=== PATIENT | female | born 1985 | race Caucasian/White ===

== ENCOUNTER → 2018-03-02 16:23 | Outpatient (CLI) | payer OTHER, SELFPAY ==
[2018-03-02 19:31] LABS: Chlamydia Trachomatis by PCR Negative (Negative); Neisserai gonorrhoeae by PCR Negative (Negative); Probe Check PASS; Sample Adequacy Control PASS; Specimen Processing Control PASS
== END ==
PROVIDERS: Visit Provider Obstetrics & Gynecology
DX: Z11.3 Encounter for screening for infections with a predominantly sexual mode of transmission (principal)
CPT/HCPCS: 87491; 87591

== ENCOUNTER → 2018-03-23 10:33 | Outpatient (CLI) | payer OTHER, SELFPAY ==
[2018-03-23 12:35] LABS: Absolute Lymphocyte Count 1.26 X10^3/ul (0.83-4.51); Absolute Neutrophil Count 4.8 X10^3/uL (2.0-7.7); Basophil# 0.03 X10^3/uL; Basophil% 0.4 % (0-1); Eosinophil# 0.15 X10^3/uL; Eosinophils% 2.2 % (0-5); Hemoglobin 12.3 g/dl (12.0-15.0); Lymphocyte # 1.26 X10^3/ul (4.0); Lymphocyte % 18.4 % (19-41); Mean Corp Hgb Conc 34.2 g/gl (32-36); Mean Corpuscular Hgb 27.6 pg (27.0-32.0); Mean Corpuscular Volume 80.9 fL (81-99); Mean Platelet Vol. 10.3 fl (6.2-12.0); Monocyte# 0.62 X10^3/uL; Monocyte% 9.1 % (0-10); Neutrophil # 4.77 X10^3/uL (2.7-7.7); Neutrophil % 69.8 % (47-70); Platelet Count 194 K/mm3 (150-450); RBC Distribution Width CV 14.8 % (11.6-14.6); RBC Distribution Width SD 42.9 fl (35.1-43.9); Red Blood Count 4.45 M/mm3 (4.2-5.4); White Blood Count 6.8 K/mm3 (4.4-11.0)
[2018-03-23 12:36] LABS: POSITIVE COUNT NO; POSITIVE DIFFERENTIAL NO; POSITIVE MORPHOLOGY NO
[2018-03-23 12:57] LABS: Thyroid Stim Hormone (TSH) 1.13 uIU/mL (0.358-3.74)
[2018-03-23 13:37] LABS: HIV - WCH Non-Reactive (Nonreactive); Rubella IgG 149.4 IU/mL
[2018-03-23 13:43] LABS: Color, Urine Yellow (Yellow); Glucose, Dipstick Normal (Normal); Ketone-Dipstick Negative (Negative); Leukocyte Esterase-Dipstick 25 /ul (Negative); Nitrite-Dipstick Negative (Negative); Occult Blood-Urine Negative /ul (Negative); Protein-Dipstick Negative (Negative); Specific Gravity, Urine 1.015 (1.002-1.030); Urine Bilirubin Dipstick Negative (Negative); Urine Clarity Sl. Cloudy (Clear); Urine Urobilinogen Normal (Normal)
[2018-03-23 14:10] LABS: Amphetamine Urine VISTA NEGATIVE (<1000 ng/mL); Barbiturate Urine VISTA NEGATIVE (< 200 ng/mL); Benzodiazepine Urine VISTA NEGATIVE (< 200 ng/mL); Cocaine Urine VISTA NEGATIVE (< 300 ng/mL); Ecstacy Urine VISTA NEGATIVE (< 500 ng/mL); Methadone Urine VISTA NEGATIVE (< 300 ng/mL); PCP Urine VISTA NEGATIVE (< 25 ng/mL); THC Urine VISTA NEGATIVE (< 50 ng/mL); Vista UDS pH Range 6
[2018-03-24 13:24] LABS: HEPATITIS B SURFACE AG Negative (Negative); Hep C Antibodies <0.1 s/co ratio (0.0-0.9); Toxoplasma Gondii IgG < 3.0 IU/mL (0.0-7.1)
[2018-03-27 10:57] LABS: Toxoplasma Gondii IgM < 3.0 AU/mL (0.0-7.9)
[2018-03-30 01:58] LABS: Prenatal RPR NONREACTIVE (NONREACTIVE)
== END ==
PROVIDERS: Visit Provider Obstetrics & Gynecology
DX: Z34.81 Encounter for supervision of other normal pregnancy, first trimester (principal); T75.89XA Other specified effects of external causes, initial encounter; Y93.K9 Activity, other involving animal care; Y92.9 Unspecified place or not applicable; Y99.9 Unspecified external cause status
CPT/HCPCS: 36415; 80307; 81002; 84443; 85025; 86703; 86762; 86777; 86778; 86803; 87340

== ENCOUNTER → 2018-05-17 17:25 | Outpatient (CLI) | payer OTHER, SELFPAY ==
[2018-05-17 16:27] VITALS: BMI 26.5
== END ==
PROVIDERS: Referring Provider Obstetrics & Gynecology; Visit Provider Obstetrics & Gynecology
DX: Z34.90 Encounter for supervision of normal pregnancy, unspecified, unspecified trimester (principal)
CPT/HCPCS: 87086

== ENCOUNTER → 2018-07-23 16:56 | Outpatient (CLI) | payer OTHER, SELFPAY ==
[2018-07-23 16:48] VITALS: BMI 26.5
[2018-07-23 17:55] LABS: Absolute Lymphocyte Count 1.61 X10^3/ul (0.83-4.51); Absolute Neutrophil Count 5.7 X10^3/uL (2.0-7.7); Basophil# 0.02 X10^3/uL; Basophil% 0.2 % (0-1); Eosinophil# 0.24 X10^3/uL; Eosinophils% 2.8 % (0-5); Hematocrit 30.4 % (37-47); Hemoglobin 9.6 g/dl (12.0-15.0); Lymphocyte # 1.61 X10^3/ul (4.0); Lymphocyte % 18.9 % (19-41); Mean Corp Hgb Conc 31.6 g/gl (32-36); Mean Corpuscular Hgb 26.3 pg (27.0-32.0); Mean Corpuscular Volume 83.3 fL (81-99); Mean Platelet Vol. 10.4 fl (6.2-12.0); Monocyte# 0.86 X10^3/uL; Monocyte% 10.1 % (0-10); Neutrophil # 5.72 X10^3/uL (2.7-7.7); Neutrophil % 67.3 % (47-70); Platelet Count 202 K/mm3 (150-450); RBC Distribution Width CV 12.9 % (11.6-14.6); RBC Distribution Width SD 37.8 fl (35.1-43.9); Red Blood Count 3.65 M/mm3 (4.2-5.4); White Blood Count 8.5 K/mm3 (4.4-11.0)
[2018-07-23 18:02] LABS: Glucose Challenge Gest 1H 50g 106 mg/dL (70-140)
[2018-07-23 18:11] LABS: POSITIVE COUNT NO; POSITIVE DIFFERENTIAL NO; POSITIVE MORPHOLOGY NO
== END ==
PROVIDERS: Referring Provider Obstetrics & Gynecology; Visit Provider Obstetrics & Gynecology
DX: Z34.92 Encounter for supervision of normal pregnancy, unspecified, second trimester (principal)
CPT/HCPCS: 36415; 82950; 85025

== ENCOUNTER → 2018-09-19 16:53 | Outpatient (CLI) | payer OTHER, SELFPAY ==
[2018-09-19 16:16] VITALS: BMI 26.5
[2018-09-19 17:12] LABS: Absolute Neutrophil Count 6.2 X10^3/uL (2.0-7.7); Basophil# 0.02 X10^3/uL; Basophil% 0.2 % (0-1); Eosinophil# 0.18 X10^3/uL; Eosinophils% 2.1 % (0-5); Hematocrit 34.8 % (37-47); Hemoglobin 11.2 g/dl (12.0-15.0); Lymphocyte % 16.1 % (19-41); Mean Corp Hgb Conc 32.2 g/gl (32-36); Mean Corpuscular Hgb 25.4 pg (27.0-32.0); Mean Corpuscular Volume 78.9 fL (81-99); Mean Platelet Vol. 9.7 fl (6.2-12.0); Monocyte# 0.81 X10^3/uL; Monocyte% 9.3 % (0-10); Neutrophil # 6.23 X10^3/uL (2.7-7.7); Neutrophil % 71.6 % (47-70); Platelet Count 180 K/mm3 (150-450); RBC Distribution Width SD 45.9 fl (35.1-43.9); Red Blood Count 4.41 M/mm3 (4.2-5.4); White Blood Count 8.7 K/mm3 (4.4-11.0)
[2018-09-19 17:14] LABS: POSITIVE COUNT NO; POSITIVE DIFFERENTIAL NO; POSITIVE MORPHOLOGY NO
[2018-09-21 13:15] LABS: HSV 1 IgG < 0.91 index (0.00-0.90); HSV 2 IgG < 0.91 index (0.00-0.90)
== END ==
PROVIDERS: Referring Provider Obstetrics & Gynecology; Visit Provider Obstetrics & Gynecology
DX: O99.013 Anemia complicating pregnancy, third trimester (principal); N90.89 Other specified noninflammatory disorders of vulva and perineum; Z3A.00 Weeks of gestation of pregnancy not specified
CPT/HCPCS: 36415; 85025; 86695; 86696

== ENCOUNTER 2018-10-17 10:15 | Inpatient (IN) | payer OTHER, SELFPAY ==
[2018-10-15 16:13] VITALS: BMI 32.6
[2018-10-17] VITALS (17 sets, daily range): BP systolic 94–127; BP diastolic 46–84; PULSE 78–100; RESP 14–18; TEMP 36.3–37.1; O2SAT 95–99; BMI 31.2
[2018-10-17] MEDS: Lactated Ringers 1,000 ML 999 ML IV (10:30)
[2018-10-17 10:42] LABS: Absolute Lymphocyte Count 1.11 X10^3/ul (0.83-4.51); Absolute Neutrophil Count 6.6 X10^3/uL (2.0-7.7); Basophil# 0.01 X10^3/uL; Basophil% 0.1 % (0-1); Eosinophil# 0.14 X10^3/uL; Eosinophils% 1.6 % (0-5); Hematocrit 35.8 % (37-47); Hemoglobin 11.9 g/dl (12.0-15.0); Lymphocyte # 1.11 X10^3/ul (4.0); Lymphocyte % 12.8 % (19-41); Mean Corp Hgb Conc 33.2 g/gl (32-36); Mean Corpuscular Hgb 25.7 pg (27.0-32.0); Mean Corpuscular Volume 77.3 fL (81-99); Mean Platelet Vol. 10.8 fl (6.2-12.0); Monocyte% 9.2 % (0-10); Neutrophil # 6.55 X10^3/uL (2.7-7.7); Neutrophil % 75.6 % (47-70); Platelet Count 162 K/mm3 (150-450); RBC Distribution Width CV 16.5 % (11.6-14.6); RBC Distribution Width SD 45.2 fl (35.1-43.9); Red Blood Count 4.63 M/mm3 (4.2-5.4); White Blood Count 8.7 K/mm3 (4.4-11.0)
[2018-10-17 10:45] LABS: POSITIVE COUNT NO; POSITIVE DIFFERENTIAL NO; POSITIVE MORPHOLOGY NO
[2018-10-17] MEDS: Sodium Citrate/Citric Acid 30 ML UDC PO (11:50)
[2018-10-17] MEDS: Lactated Ringers 1,000 ML 150 ML IV (11:50)
[2018-10-17] MEDS: Oxytocin 30 units/NS 500 ml 30 UNITS/500 ML IV.SOLN 167 UNITS IV (12:19)
[2018-10-17] MEDS: Methylergonovine 0.2 MG/ML Ampul IM (13:45)
[2018-10-17] MEDS: Lactated Ringers 1,000 ML 100 ML IV ×2 (14:37→22:00)
[2018-10-17] MEDS: Nalbuphine 10 MG/ML Ampul 5 MG IV (14:57)
[2018-10-17] MEDS: Acetaminophen 500 MG Tablet 1000 MG PO (16:29)
[2018-10-17] MEDS: 0.9% Saline Lock 10 ML Syringe IV (17:08)
[2018-10-17] MEDS: Ondansetron 4 MG/2 ML Vial IV (17:08)
[2018-10-17] MEDS: Ketorolac 30 MG/ML Syringe IV (17:56)
[2018-10-18] VITALS (10 sets, daily range): BP systolic 107–126; BP diastolic 59–73; PULSE 78–96; RESP 16–18; TEMP 36.8–37.2; O2SAT 96–99
[2018-10-18] MEDS: 0.9% Saline Lock 10 ML Syringe IV ×5 (00:08→23:59)
[2018-10-18] MEDS: Ketorolac 30 MG/ML Syringe IV ×5 (00:08→23:58)
[2018-10-18 07:00] LABS: Hematocrit 35.2 % (37-47); Hemoglobin 11.4 g/dl (12.0-15.0); Mean Corp Hgb Conc 32.4 g/gl (32-36); Mean Corpuscular Hgb 25.6 pg (27.0-32.0); Mean Corpuscular Volume 78.9 fL (81-99); Mean Platelet Vol. 10.5 fl (6.2-12.0); Platelet Count 167 K/mm3 (150-450); RBC Distribution Width CV 16.5 % (11.6-14.6); RBC Distribution Width SD 46.5 fl (35.1-43.9); Red Blood Count 4.46 M/mm3 (4.2-5.4); White Blood Count 12.2 K/mm3 (4.4-11.0)
[2018-10-18 07:05] LABS: Scan Indicated on CBC? Y/N NO
--- NOTE | 2018-10-18 07:23 | PCM.HPOB.BLA ---
- Problem List (1) Positive GBS test Status: Acute (2) History of depression Status: Acute Comment: start celexa at 36 weeks- ordered (3) Anemia affecting Status: Acute Qualifiers: Comment: repeat CBC at 36 weeks (4) History of Status: Acute Comment: 1st Breech, low fluid. 2nd repeat. Wants TOLAC (5) Status: Acute Qualifiers: Comment: carrier, genetic, and ntd screening declined. MFM US anatomy normal. Albin breech presentation (6) Supervision of normal in second trimester Status: Acute Qualifiers: Comment: PRR JOHNATHAN 10/17/18 gender surprise PC Niurka Camacho. Spouse Christian COLLIER ([facility]) History and Physical Date of Admission: 10/17/18 Intake Vital Signs 10/15/18 Body Mass Index (BMI) 32.3 10/15/18 Height 5 ft 5 in 10/15/18 Weight: 196 lb 4 oz 10/15/18 Body Mass Index (BMI) 32.6 10/15/18 Blood Pressure 138/72 H Intake Visit Reasons: 40 week ob Insurance Claims Specialist Required: No Is patient in pain?: No Allergies No Known Allergies Allergy (Verified 10/15/18 16:14) Medications Vits [Prenatabs FA ] 1 tab PO DAILY 12/06/13 [History Confirmed 10/15/18] ranitidine 150 mg tablet 150 mg PO BID #60 tab 06/11/18 [Rx Confirmed 10/15/18] ferrous sulfate 325 mg (65 mg iron) tablet 325 mg PO DAILY tab 08/06/18 [History Confirmed 10/15/18] citalopram 20 mg tablet 20 mg PO DAILY #30 tab 09/03/18 [Rx Confirmed 10/15/18] Last Menstral Period: 01/10/18 : No PFSH PFSH Surgical History delivery delivered (Acute) Social History number of children: 2 current occupational status: employed current occupation: [employer] Smoking Status: Never smoker alcohol intake: never substance use type: does not use seatbelt use: always do you feel safe at home: Yes 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 Date Name GA/Weeks Outcome Route Bth Weight Infant Gen Labor Lgth Anesthesia Del Locatn Provider FOB 12/19/11 Doug 39 live - full term 7 lbs. 3 oz. Male spinal [facility] Brian OBGYN 12/09/13 Niurka 39 live - full term 7 lbs. 7 oz. Female spinal [facility] Anton OBGYN HPI 40 week ob: Details: SALLY CANELA is a 33 year old who presents for routine OB visit. after discussion, will plan repeat or IOL if favorable. OB Visit JOHNATHAN Calculator Estimated Delivery Date 10/17/18 Based on LMP (certain) 01/10/18 Current WG 40w 0d Number 1 Expected Delivery Route/Plan TOLAC- uptodate education given, consent signed Specific Issue/Plans flu vaccine: given tdap vaccine: given rhogam: na LARC form signed: declined labor support person: Christian pain management: epidural cut cord/dad catch: : yes PP control planned: none special requests: [] Initial Weight: 155 lb Date EGA Weight BP Urine Prot Glucose FHR FuHt Pres Mov CTX Dilation Effaced St Visit Note 04/18/18 14w 0d 159 lb 6 oz (+4 lb 6 oz) 112/76 Negative Negative 156 No VB, LOF. AMIRA from Dr. Parekh 05/17/18 18w 1d 166 lb 2 oz (+11 lb 2 oz) Negative Negative 135 no vb lof cramping co left hip pain 06/11/18 21w 5d 169 lb (+14 lb) Negative Negative 135 no vb cramping, co heartburn- put on zantac. discussed history of PPD- will plan on celexa 4 weeks at 36 weeks 07/13/18 26w 2d 179 lb 4 oz (+24 lb 4 oz) 112/68 140 no vb lof good fm n oregular ctx. 07/23/18 27w 5d 181 lb 6 oz (+26 lb 6 oz) 124/72 140 29 Breech Active no vb lof good fm no regular ctx cbc gct tdap 08/06/18 29w 5d 184 lb (+29 lb) 118/76 Negative Negative 135 30 Cephalic Active no vb lof good fm no regular ctx. 08/20/18 31w 5d 185 lb (+30 lb) 110/70 Negative Negative 140 32 Cephalic Active absent no vb lof good fm no regular ctx 09/03/18 33w 5d 189 lb (+34 lb) 108/70 Negative Negative 135 34 Cephalic Active absent no vb lof good fm no regular ctx 09/19/18 36w 0d 190 lb 4 oz (+35 lb 4 oz) 132/74 Negative Negative 125 36 Cephalic Active absent 0.5 co vulvar sore- has had in the past, no history of herpes. recommend checking titers KALEE. discussed antivirals if posititve so she could still have a vaginal delivery 09/24/18 36w 5d 194 lb 4 oz (+39 lb 4 oz) 118/68 Negative Negative 136 37 Cephalic Active absent 1.40 -4 Doing well. Vulvar sore has resolved. Titers negative. No VB, LOF 10/01/18 37w 5d 192 lb 6 oz (+37 lb 6 oz) 124/64 Negative Negative 135 37 Cephalic Active absent 1 4: 0 -2 no vb lof good fm no regular ctx 10/10/18 39w 0d 194 lb 2 oz (+39 lb 2 oz) 132/82 Negative Negative 130 39 Cephalic Active absent 1 4: 0 -2 no vb lof good fm no regular ctx 10/15/18 39w 5d 196 lb 4 oz (+41 lb 4 oz) 138/72 Negative Negative 130 39 Cephalic Active absent 1 4: 0 -2 no vb lof good fm no regular ctx Visit Notes Visit Date: 10/15/18 no vb lof good fm no regular ctx Irene Huynh MD on 10/16/18 Visit Date: 10/10/18 no vb lof good fm no regular ctx Irene Huynh MD on 10/10/18 Visit Date: 10/01/18 no vb lof good fm no regular ctx Irene Huynh MD on 10/01/18 Visit Date: 09/24/18 Doing well. Vulvar sore has resolved. Titers negative. No VB, LOF CARLYLE Kearney on 09/24/18 Visit Date: 09/19/18 co vulvar sore- has had in the past, no history of herpes. recommend checking titers KALEE. discussed antivirals if posititve so she could still have a vaginal delivery Irene Huynh MD on 09/19/18 Visit Date: 09/03/18 no vb lof good fm no regular ctx Irene Huynh MD on 09/03/18 Visit Date: 08/20/18 no vb lof good fm no regular ctx Irene Huynh MD on 08/20/18 Visit Date: 08/06/18 no vb lof good fm no regular ctx. Irene Huynh MD on 08/06/18 Visit Date: 07/23/18 no vb lof good fm no regular ctx cbc gct tdap Irene Huynh MD on 07/23/18 Visit Date: 07/13/18 no vb lof good fm n oregular ctx. Irene Hunyh MD on 07/13/18 Visit Date: 06/11/18 no vb cramping, co heartburn- put on zantac. discussed history of PPD- will plan on celexa 4 weeks at 36 weeks Irene Huynh MD on 06/11/18 Visit Date: 05/17/18 no vb lof cramping co left hip pain Irene Huynh MD on 05/17/18 Visit Date: 04/18/18 No VB, LOF. AMIRA from Dr. Iglesia Prince, [employer] on 04/18/18 ACOG First Trimester First Trimester: Desire for , Alcohol, Tobacco Cessation, Illicit/Recreational Drug/Substance Use, Intimate Partner Violence, Barriers to care, Unstable Housing, Communication Barriers, Environmental/Work Hazards, Anticipated Course of Care, Toxoplasmosis Precations, Use of Any medications, Sexual activity, Exercise, Dental Care, Sauna/Hot tub use, Seat Belt use, Childbirth classes/Hospital facilities, , Travel, Indications for US and Screening for Aneuploidy Second Trimester Second Trimester: Signs and Symptoms of Labor, Selecting a care provider, Reproductive Life Planning, Care Planning, Tobacco Cessation, Depression/Anxiety and Intimate Partner Violence Third Trimester Third Trimester: Pain Management Plans, Labor support person(s), Immediate Larc, Movement Monitoring and Feeding Yes ; discussed Trial of Labor after Counseling or discussed Circumcision preference Diagnostics Diagnostics Labs Hct 34.8 % (37-47) L 09/19/18 Hgb 11.2 g/dl (12.0-15.0) L 09/19/18 Glucose 1 Hr 50 gm 106 mg/dL (70-140) 07/23/18 Details: HIV: Urine Culture: Sequential Screen: NIPT Screen: ROS Const Reports system reviewed and no additional complaints, except as docu Card Reports system reviewed and no additional complaints, except as docu Resp Reports system reviewed and no additional complaints, except as docu GI Reports system reviewed and no additional complaints, except as docu, Reports nausea Reports system reviewed and no additional complaints, except as docu Musc Reports system reviewed and no additional complaints, except as docu Exam Const General: cooperative, healthy appearing, comfortable, anxious HENMT Head: normal to inspection Nose: external nose normal Face and sinus: normal facial exam Neck Neck: normal visual inspection, full ROM, no lymphadenopathy Thyroid: thyroid normal Chest Chest palpation & inspection: normal inspection of the chest Resp Effort & Inspection: normal respiratory effort GI Inspection: normal to inspection Palpation: soft, other (gravid uterus) Other: infant vertex and appropriate size for gestational age Other: Cervical Exam: Extrem General: pedal edema Results [id number] Office Urine Glucose Negative Last Edit by Irina Coffey on 10/15/18 16:17 Office Urine Protein Negative Last Edit by Irina Coffey on 10/15/18 16:17 Assessment & Plan Problems 1. Positive GBS test B95.1 2. History of depression Z87.59; Z86.59 start celexa at 36 weeks- ordered 3. Anemia affecting in third trimester O99.013 repeat CBC at 36 weeks 4. History of Z98.891 1st Breech, low fluid. 2nd repeat. Wants TOLAC 5. 39 weeks gestation of Z3A.39 carrier, genetic, and ntd screening declined. MFM US anatomy normal. Albin breech presentation 6. Encounter for supervision of other normal in second trimester Z34.82 PRR JOHNATHAN 10/17/18 gender surprise Niurka Vásquez. Spouse Christian AMIRA ([facility]) Plan plan RLTCS and BTL, or IOL if favorable Orders Orders: POC Urinalysis 2 Dip (Clinic) 10/15/18 Coding Level of Care Code OB Routine Diagnoses Positive GBS test B95.1 History of depression Z87.59; Z86.59 Anemia affecting in third trimester O99.013 Trimester: third trimester History of Z98.891 39 weeks gestation of Z3A.39 Weeks of gestation: 39 weeks Encounter for supervision of other normal in second trimester Z34.82 Normal : other normal UPDATE- I have seen the patient and performed any clinically relevant updates to the history and physical exam. Irene Huynh MD
--- NOTE | 2018-10-18 07:24 | PCM.OPRPT ---
Problem List (1) Positive GBS test Status: Acute (2) History of depression Status: Acute Comment: start celexa at 36 weeks- ordered (3) Anemia affecting Status: Acute Qualifiers: Comment: repeat CBC at 36 weeks (4) History of Status: Acute Comment: 1st Breech, low fluid. 2nd repeat. Wants TOLAC (5) Status: Acute Qualifiers: Comment: carrier, genetic, and ntd screening declined. MFM US anatomy normal. Albin breech presentation (6) Supervision of normal in second trimester Status: Acute Qualifiers: Comment: PRR JOHNATHAN 10/17/18 gender surprise PC Niurka Camacho. Spouse Christian AMIRA ([facility]) Delivery Classification: Scheduled Final JOHNATHAN: 10/17/18 Gestational age: 40 Weeks and 1 Days Indications for : Repeat Elective Description of Procedure: The patient is a 33-year-old G3, P2 at 40 weeks presented for repeat . Spinal anesthesia was placed without difficulty. Palma catheter was placed. The patient was placed in the dorsal supine position with leftward tilt. Patient was prepped and draped in the normal sterile fashion. Pfannenstiel skin incision was made with the scalpel and carried through to the underlying layer of fascia with the scalpel. Fascia was nicked in the midline and the incision extended laterally. The rectus bellies were dissected off superiorly and inferiorly with out complication both sharply and bluntly. The peritoneum was entered digitally. The lower uterine segment of the uterus was noted to be significantly thin and almost translucent to where vernix was seen floating underneath the thin lower uterine segment two thirds the way across the lower uterus. No uterine dehiscence was seen however the area was incredibly thin. The incision was stretched and a low transverse uterine incision was made with the scalpel. The 's head was delivered atraumatically followed by the anterior and posterior shoulders without complication the rest of the infant delivered. The cord was clamped and cut and the was handed off to awaiting nurse. The placenta was delivered spontaneously immediately following and was noted to be intact and have a three-vessel cord. The uterus was exteriorized cleared of all clots and debris, and the incision was closed in a double layer closure using #1 Monocryl. The uterus was returned to the maternal abdomen and gutters were cleared of all clots and debris. The ovaries and fallopian tubes were noted to be within normal limits. The peritoneum was closed with 3-0 Monocryl in a running fashion. Fascia was closed with 0 PDS in a running fashion. Subcutaneous tissue was copiously irrigated and the skin was closed with 3-0 Monocryl in a subcuticular fashion. Mepilex dressing were applied without complication. Patient was taken to recovery in stable condition. Amniotic Membrane Rupture Type: Artificial Amniotic Fluid Description: Clear Placenta Disposition: [facility] Cord Entanglement: Around neck x 1, loose, - - Around the body x3 Esitmated Blood Loss (ml): 700 Infant Gender: Male Pre-op Antibiotic Given: Ancef 2 grams IV x1 Complications: None - Admit VTE Documentation VTE Present on Admission: No VTE Mechan Device Prophylaxis: SCD's
--- NOTE | 2018-10-18 07:41 | PN.OBGYN_ITS ---
Subjective: doing well no complaints pain controlled. Denies SOB but has discomfort over bilateral collar bone that increased with a deep breath. No N V. ambulating well tolerating po lochia moderate, going well - Physical Exam General: Alert, Oriented x3 Lungs: Clear to auscultation, Normal air movement, No rhonchi, No wheeze, No rales Abdomen: Soft, Non-Distended, - - FF below U. Dressing intact without new drainage. Vital Signs Temp Pulse Resp BP Pulse Ox 98.5 F 88 16 108/70 97 10/18/18 06:00 10/18/18 06:00 10/18/18 06:00 10/18/18 06:00 10/18/18 06:00 Oxygen Delivery Method Room Air Weight: 188 lb Body Mass Index (BMI) 31.2 Intake and Output for Last 24 Hours 10/16/18 10/17/18 10/18/18 23:59 23:59 23:59 Intake Total 1986 / 1986 Output Total 150 / 150 1000 / 1000 Balance 1837 / 1837 1008 / 1008 Laboratory Tests Past 24 Hrs 10/17/18 10/17/18 10/18/18 10:30 10:30 06:40 WBC 8.7 12.2 H RBC 4.63 4.46 Hgb 11.9 L 11.4 L Hct 35.8 L 35.2 L MCV 77.3 L 78.9 L MCH 25.7 L 25.6 L MCHC 33.2 32.4 RDW 16.5 H 16.5 H RDW Differential 45.2 H 46.5 H Plt Count 162 167 MPV 10.8 10.5 Immature Gran % (Auto) 0.700 Neut % (Auto) 75.6 H Lymph % (Auto) 12.8 L Carson % (Auto) 9.2 Eos % (Auto) 1.6 Baso % (Auto) 0.1 Absolute Neuts (auto) 6.6 Absolute Lymphs (auto) 1.11 Total Counted Not Reportable Blood Type O POSITIVE Antibody Screen NEGATIVE Medical Necessity - Tobacco Use Smoking Status: Never smoker Assessment/Plan All Active Problems (Last Reviewed 10/15/18 @ 16:13 by Irina Coffey) Positive GBS test (Acute) History of depression (Acute) Anemia affecting (Acute) History of (Acute) (Acute) Supervision of normal in second trimester (Acute) s/p LTCS PPD # 1 1. routine post care 2. breast feeding- support given 3. rh positive 4. rubella immune
[2018-10-18] MEDS: Acetaminophen 500 MG Tablet 1000 MG PO (11:47)
[2018-10-18] MEDS: Senna/Docusate Sodium 1 Tablet PO (11:47)
--- NOTE | 2018-10-18 15:49 | NURSING ---
encouraged ambulation, ngs diet.
[2018-10-19 02:32] VITALS: BP 118/73; PULSE 84; RESP 18; TEMP 36.6
[2018-10-19] MEDS: 0.9% Saline Lock 10 ML Syringe IV ×2 (06:12→11:29)
[2018-10-19] MEDS: Ketorolac 30 MG/ML Syringe IV ×2 (06:12→11:29)
--- NOTE | 2018-10-19 08:06 | PCM.PN.OB ---
Subjective: doing well no complaints pain controlled no CP SOB N V ambulating well tolerating po lochia moderate, going well - Physical Exam General: Oriented x3 Abdomen: Soft, Non-Distended, - - FF below U. Dressing without new drainage, intact Vital Signs Temp Pulse Resp BP Pulse Ox 97.9 F 84 18 118/73 97 10/19/18 02:32 10/19/18 02:32 10/19/18 02:32 10/19/18 02:32 10/18/18 15:40 Oxygen Delivery Method Room Air Weight: 188 lb Body Mass Index (BMI) 31.2 Intake and Output for Last 24 Hours 10/17/18 10/18/18 10/19/18 23:59 23:59 23:59 Intake Total 1986 / 1986 Output Total 150 / 150 1000 / 1000 Balance 1837 / 1837 1008 / 1008 Medical Necessity - Tobacco Use Smoking Status: Never smoker Assessment/Plan All Active Problems (Last Reviewed 10/15/18 @ 16:13 by Irina Coffey) Positive GBS test (Acute) History of depression (Acute) Anemia affecting (Acute) History of (Acute) (Acute) Supervision of normal in second trimester (Acute)
--- NOTE | 2018-10-19 08:09 | DCINST_ITS ---
Additional Instructions: If you experience any of the following, contact your healthcare provider. * Bleeding that soaks a pad every hour for 2 hours * Fever 100.4 or higher * Unrelieved incision or abdominal pain * Swelling, redness, discharge or bleeding from your incision or episiotomy site * Your incision begins to separate * Problems urinating (including inability to urinate or burning while urinating). * Visual changes * Severe headache * Flu-like symptoms * Pain or redness in one of both of your breasts * Pain, warmth, tenderness or swelling in your legs, especially the calf area * Frequent nausea and vomiting * Symptoms of depression or anxiety If you experience any of the following, call 911 or go to the nearest Emergency Room. * Chest pain * Problems breathing * Seizure activity * Partial or complete paralysis of a body part, slurred speech, weakness or drooping of the face, or a sudden inability to walk or hold your balance Allergies/Adverse Reactions: Allergies No Known Allergies Allergy (Verified 10/17/18 10:40) Medications to take at Discharge Vits [Prenatabs FA ] 1 tab PO DAILY 12/06/13 ferrous sulfate 325 mg (65 mg iron) tablet 325 mg PO DAILY tab 08/06/18 Citalopram [Celexa] 20 mg PO DAILY 10/17/18 Ranitidine HCl 150 mg PO BID 10/17/18 Naproxen [Naprosyn] 250 - 500 mg PO Q8H PRN PRN #30 tablet 10/18/18 Oxycodone HCl/Acetaminophen [Percocet 5-325] 1 - 2 tablet PO Q4H PRN PRN 7 Days #28 tablet 10/18/18 Naproxen [Naprosyn] 500 mg PO BID PRN PRN #60 tablet 10/19/18 Naproxen [Naprosyn] 500 mg PO BID PRN PRN #60 tablet 10/19/18 Oxycodone HCl/Acetaminophen [Percocet 5/325] 1 - 2 tablet PO Q4H PRN PRN 7 Days #28 tablet 10/19/18 Oxycodone HCl/Acetaminophen [Percocet 5/325] 1 - 2 tablet PO Q4H PRN PRN 7 Days #28 tablet 10/19/18 The following prescriptions were given: Oxycodone HCl/Acetaminophen [Percocet 5-325] 1 - 2 tablet PO Q4H PRN PRN 7 Days #28 tablet PRN Reason: Moderate-Severe pain Oxycodone HCl/Acetaminophen [Percocet 5/325] 1 - 2 tablet PO Q4H PRN PRN 7 Days #28 tablet PRN Reason: Pain Oxycodone HCl/Acetaminophen [Percocet 5/325] 1 - 2 tablet PO Q4H PRN PRN 7 Days #28 tablet PRN Reason: Pain Naproxen [Naprosyn] 250 - 500 mg PO Q8H PRN PRN #30 tablet PRN Reason: MILD PAIN Naproxen [Naprosyn] 500 mg PO BID PRN PRN #60 tablet PRN Reason: Pain Naproxen [Naprosyn] 500 mg PO BID PRN PRN #60 tablet PRN Reason: Pain Follow-Up: Call to make an appointment with your doctor for an incision check in 1-2 weeks. You will also need a 6 week post- follow up appointment. Test results from this visit will be discussed in further detail at your follow- up appointment, if applicable. Primary Care Physician: Charlene Bailey MD [Primary Care Provider] -
[2018-10-19 09:29] VITALS: BP 120/64; PULSE 88; RESP 16; TEMP 37.6; O2SAT 96
[2018-10-19 11:35] VITALS: TEMP 37.3
--- NOTE | 2018-10-19 11:48 | CASEMGMT ---
Social Work Brief Assessment - Labor and Delivery Unit Date of Referral/Notification: 10/18/2018 Time of Referral: 1100 Referred By: verbal notification from RN Jeanette Salmeron Reason for Referral: maternal history of depression Date of Intervention: 10/19/2018 Time of Intervention: 1100 Informant: Medical record and mother of baby (MOB) Sae Escobar History: MOB is 33 year old female, to father of baby (FOB) Christian Escobar for the last 8 years. Together for a total of 15 years. MOB and FOB have 3 children together, Doug (born ), Niurka (born ), and Travis (born 10.17.2018). MOB with starting at [address] Huynh, and was a transfer of care from Dr. Parekh office. baby Travis was born weighing 7 pounds 3 ounces a . Apgars 8 and 9 a t1 and 5 minutes of life. 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 FOB works for [employer]. MOB with history of depression, with MOB reporting that symptoms were mostly related to anxiety which led to MOB feeling down and with a low mood. MOB reports that many symptoms were directly related to MOB's attempts with the other children. MOB reports has worked with Dr. Huynh during this and started a medication, Celexa, at 34 weeks to see if this will help during the period. No reports of other mental health issues. No reports or indication of any substance use or abuse issues. Assessment: Met with MOB, baby laying on back in between MOB's legs. MOB touching baby intermittently and looked at baby several times. FOB sleeping in bed but did wake up mid conversation and participated. MOB reports to be feeling good right now and feeling that breast feeding is going better this time as compared to after previous deliveries. MOB reports plan to stay on medications, as well as work more closely with in this period. MOB reports to have adequate support from MOB's family, FOB's family and FOB. FOB will have a couple of weeks off work to help with transition home. MOB reports to have needed supplies, no reported issues with housing or transportation. MOB denies need for any services such as WIC. MOB accepting of depression packet, which does include online and local resources for depression support. MOB with good eye contact, relaxed motor activity, appropriate mood and affect to content. MOB talkative and open to sharing past past experiences. Presenting as self aware and with insight into risk for mood and anxiety issues. MOB denies any additional needs fo home going. No voiced concerns by nursing staff regarding mother/child bonding or interactions. Plan: MOB and baby to home when ready. MOB has been given depression packet for home going. No further needs requested or indicated. -ANA Soto, CROWN BUFFER
--- NOTE | 2018-10-24 09:29 | NURSING ---
baby nursing well. Baby gained 2 oz back from 24 hour weight at first doctor appt. Lots of voids and stools for baby. Mother doing well. States enjoyed stay.
== END 2018-10-19 12:50 | disposition home or self-care (01) | DRG 788 ==
PROVIDERS: Admitting Provider Obstetrics & Gynecology; Family Provider Family Medicine; PCP Family Medicine; Referring Provider Obstetrics & Gynecology; Visit Provider Obstetrics & Gynecology
PROC: (CPT 59514; principal; 2018-10-17 11:45)
DX: O34.211 Maternal care for low transverse scar from previous cesarean delivery (principal); O99.824 Streptococcus B carrier state complicating childbirth; O32.1XX0 Maternal care for breech presentation, not applicable or unspecified; O69.81X0 Labor and delivery complicated by cord around neck, without compression, not applicable or unspecified; O99.02 Anemia complicating childbirth; D64.9 Anemia, unspecified; Z87.59 Personal history of other complications of pregnancy, childbirth and the puerperium; Z79.899 Other long term (current) drug therapy; Z3A.40 40 weeks gestation of pregnancy; Z37.0 Single live birth
CPT/HCPCS: 85025; 85027; 86850; 86900; 99218; J7120; A4216; G0378; J2405

== ENCOUNTER → 2019-12-24 | Outpatient (CLI) | payer OTHER, SELFPAY ==
[2019-12-24 14:29] VITALS: BMI 27.3
[2019-12-29 06:01] LABS: HSV Culture Without Typing NEGATIVE
== END | disposition home or self-care (01) ==
LOC: LABSPEC 17:13
PROVIDERS: PCP Family Medicine; Referring Provider Nurse Practitioner Women's Health; Visit Provider Nurse Practitioner Women's Health
DX: N90.89 Other specified noninflammatory disorders of vulva and perineum (principal)
CPT/HCPCS: 87255

== ENCOUNTER → 2020-01-15 | Outpatient (CLI) | payer OTHER, SELFPAY ==
[2020-01-15 15:44] VITALS: BMI 27.3
[2020-01-17 13:22] LABS: HSV 1 IgG < 0.91 index (0.00-0.90); HSV 2 IgG < 0.91 index (0.00-0.90)
[2020-01-21 10:45] LABS: HPV APTIMA, High Risk Negative (Negative)
== END | disposition home or self-care (01) ==
LOC: LABSPEC 17:18
PROVIDERS: PCP Family Medicine; Referring Provider Obstetrics & Gynecology; Visit Provider Obstetrics & Gynecology
DX: Z12.4 Encounter for screening for malignant neoplasm of cervix (principal)
CPT/HCPCS: 36415; 86695; 86696; 87624; 88175; G0145

== ENCOUNTER 2021-01-11 21:47 | Emergency (ER) | payer OTHER, SELFPAY ==
[2020-01-15 15:44] VITALS: BMI 27.3
[2021-01-11 21:49] VITALS: BP 110/76; PULSE 68; RESP 15; TEMP 36.2; O2SAT 100; BMI 26.1
[2021-01-11 22:05] VITALS: O2SAT 97
--- NOTE | 2021-01-11 22:05 | EKG12_ITS ---
Test Reason : DYSRHYTHMIA Blood Pressure : / mmHG Vent. Rate : 075 BPM Atrial Rate : 075 BPM P-R Int : 142 ms QRS Dur : 090 ms QT Int : 406 ms P-R-T Axes : 053 070 057 degrees QTc Int : 453 ms Normal sinus rhythm Normal ECG Confirmed by KRYSTA AMBROSIO, AMY ([id number]), society editor MEGHNA PERKINS ([id number]) on 01/13/2021 10:08:43 AM Referred By: KELSEA Confirmed By:AMY CHAPARRO MD
--- NOTE | 2021-01-11 22:08 | EX.ED.DYSGE1 ---
HPI History of Present Illness Chief Complaint: General Illness Narrative Narrative: 35-year-old female presenting with chief complaint of epigastric burning. She states this started this morning after having coffee, yogurt, granola. She took 2 Tums and felt as if she was improved. Throughout the day she had a little bit more coffee and had a pork, ramirez, ketchup casserole and started to have increased burning again. She states that the burning became so bad that while she was sitting on the couch she had an episode of syncope. Patient states she was out for about a minute and did not fall and hit her head. No history of syncope. Currently she says that it feels like tightness in the center of her chest when she takes a deep breath only. She expresses that she is mildly nauseous but has not vomited. Patient also states has had diarrhea for about 2 days without black or bloody stools. She has not had a fever, chills, cough, myalgias, change in taste and smell. Patient denies history of recent travel, being bedridden or immobilized, calf pain or swelling, history of cancer, history of blood clots. Patient states that she has been off of oral control for months and took her first dose today. She is not concerned for . 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 Smoking Status: Never smoker alcohol intake: never substance use type: does not use seatbelt use: always do you feel safe at home: Yes 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 [employer] 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 ED Constitutional Constitutional ED: Denies chills or fever(s) Eyes Eyes: Denies blurry vision or diplopia ENT ENT ED: Denies rhinorrhea or sore throat Cardiovascular Cardiovascular: Reports chest pain; Denies palpitations or racing heartbeat Respiratory/Chest Respiratory/Chest: Denies cough or dyspnea Gastrointestinal Gastrointestinal: Reports abdominal pain, diarrhea and nausea Genitourinary Genitourinary ED: Denies dysuria or hematuria Musculoskeletal Musculoskeletal: Denies arthralgias, back pain, myalgias or neck pain Integumentary Denies Abrasions or rash Neurologic Neurologic: Denies headache(s) or paresthesias Psychiatric Psychiatric: Denies anxiety or depression EXAM Physical Exam Const Vital Signs: 01/11/21 21:49 01/11/21 21:52 01/11/21 22:05 Temperature 97.1 F L Temperature Source Oral Pulse Rate 68 Pulse Rate [Lying] Pulse Rate [Sitting] Pulse Rate [Standing] Respiratory Rate 15 Respiratory Effort Normal Non-Labored Respiratory Pattern Normal Blood Pressure 110/76 Blood Pressure [Lying] Blood Pressure [Sitting] Blood Pressure [Standing] Blood Pressure Mean 87 Blood Pressure Mean [Lying] Blood Pressure Mean [Sitting] Blood Pressure Mean [Standing] Pulse Ox 100 97 Oxygen Delivery Method Room Air Room Air 01/11/21 23:48 01/12/21 00:05 Temperature Temperature Source Pulse Rate 82 Pulse Rate [Lying] 78 Pulse Rate [Sitting] 74 Pulse Rate [Standing] 93 Respiratory Rate 20 H Respiratory Effort Respiratory Pattern Blood Pressure 101/70 Blood Pressure [Lying] 105/72 Blood Pressure [Sitting] 111/74 Blood Pressure [Standing] 109/88 H Blood Pressure Mean 80 Blood Pressure Mean [Lying] 83 Blood Pressure Mean [Sitting] 86 Blood Pressure Mean [Standing] 95 Pulse Ox 99 Oxygen Delivery Method Room Air Positive well nourished General Appearance ED: NAD HEENT Reports moist mucous membranes Negative for trauma Eyes PERRL and EOMs intact bilaterally General Eye ED: Negative for pale conjunctiva or scleral icterus Resp normal respiratory effort and clear to auscultation bilaterally Cardio regular rate, regular rhythm and no murmurs GI normal to inspection, nondistended, normoactive bowel sounds Back/Spine no CVA tenderness Extremity normal to inspection General Extremety ED: Negative for edema or tenderness General Extremity: Negative for edema Neuro oriented x3, CN's II-XII intact bilaterally and no sensory deficits noted Sensorium / Orientation: alert Motor Exam: strength 5/5 throughout Psych mental status grossly normal Skin no rashes or lesions noted and no wounds MDM MDM MDM Narrative Medical decision making narrative: 35-year-old female presenting with chest pain and epigastric burning. Although she started her oral control today I still feel I can apply the PERC rule and currently she is PERC negative. She has no history of DVT/PE and has no other risk factors. Patient has no cardiac history. She does have an episode of syncope which occurred while she was sitting on the couch. She currently states her pain is better but she feels nauseous. Her abdomen is soft nontender nondistended with normal bowel sounds. Heart score is 0 pretesting. EKG interpreted by myself shows a normal sinus rhythm with a ventricular rate of 75 bpm. ND interval 140 ms QRS duration 90 ms QTc 453 ms. There are no ST elevations or depressions or signs of dysrhythmia. Patient is a slight leukocytosis to 14.5 with normal hemoglobin hematocrit. Platelets are normal. Renal function is normal and potassium is slightly low at 3.3. LFTs are normal. Lipase is negative. Troponin is 3.0. Chest x-ray on my interpretation shows what looks to be fluid in a pleural fissure on the right, however the radiologist does read this as a questionable mass in the right hilar region and recommended a CT scan to further evaluate. this was discussed with the patient and I will obtain a CT without contrast given that I do not have concern for PE or dissection. The CT scan of her chest shows a well-defined ovoid mass in the anterior right middle lobe measuring 3.6 x 2.2 cm concerning for AVM. Patient was treated with Zofran and a GI cocktail and she states that her epigastric pain is gone although she had some residual nausea which she thinks is due to the taste of the GI cocktail. Orthostatic blood pressures are normal. Patient does have an elevated heart rate with standing however during the orthostatic vitals I did walk into the room is unclear whether this affected her heart rate. She did not feel symptomatic or lightheaded. Patient's family member is a dispute coordinator at [facility] and was able to text Dr. Pillai who is a trauma surgeon at [facility]. He did call me in the emergency room and I spoke with him about the patient's presentation and case and he would concerned that this might need to be treated immediately as there are some risk factors to having a pulmonary AVM. He discussed this with the storage battery inspector and tester and the hospitalist at [facility] and ultimately recommended that we transfer her to inpatient to have her AVM treated. It is unclear how long this has been present because the patient has never had a chest x-ray or CAT scan of her chest before. I am unsure if the symptoms that she expressed today are directly related to this however given the risk assessed the storage battery inspector and tester and Dr. Pillai at [facility] we did ultimately decide to have her transferred. Patient was amenable to this. Her vital signs remained stable. She remained pain-free and nausea free. Patient reevaluated multiple times and on last reevaluation she is sleeping. I spoke with her family multiple times as well as her, Dr. Pillai, and Dr. Howard. Impression: 1. Chest pain noncardiac 2. Epigastric pain 3. Syncope 4. 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 Labs: Laboratory Results - last 24 hr 01/11/21 01/11/21 01/11/21 21:52 21:52 21:52 WBC 14.5 H RBC 4.35 Hgb 11.9 L Hct 36.7 L MCV 84.4 MCH 27.4 MCHC 32.4 RDW Std Deviation 42.4 RDW Coeff of Merlyn 13.7 Plt Count 261 MPV 9.7 Immature Gran % (Auto) 0.400 Neut % (Auto) 81.3 H Lymph % (Auto) 11.2 L [place] % (Auto) 5.2 Eos % (Auto) 1.6 Baso % (Auto) 0.3 Absolute Neuts (auto) 11.8 H Absolute Lymphs (auto) 1.62 Nucleated RBC % 0 Sodium 140 Potassium 3.3 L Chloride 107 Carbon Dioxide 26.0 Anion Gap 7 BUN 12 Creatinine 0.93 Estim Creat Clear Calc 75.97 Est GFR (MDRD) Af Amer 88 Est GFR (MDRD) Non-Af 73 BUN/Creatinine Ratio 12.9 Glucose 120 H Calcium 8.6 Total Bilirubin 0.40 Direct Bilirubin 0.13 AST 17 ALT 23 Alkaline Phosphatase 54 Troponin I High Sens 3.0 Total Protein 6.6 Albumin 3.6 Globulin 3.0 Lipase 78 Radiography Diagnostic Testing: Radiology Impression Chest X-Ray 01/11/21 22:12 IMPRESSION: No acute cardiopulmonary disease. Questionable mass in the right hilar region. Chest CT recommended to further evaluate Electronically Signed: Neil DO Kemi at 22:41 EDT Tel , Service support , Chest CT 01/11/21 22:49 IMPRESSION: Suggestion of a large pulmonary AVM in the right middle lobe as above. Otherwise, lungs are clear. Nonemergent consultation with program management manager is recommended. Electronically Signed: Neil DO Kemi at 23:32 EDT Tel , Service support , Discharge Plan Triage Chief Complaint: General Illness ED Provider: Justin Goel Dx/Rx/DC Orders Prescriptions: No Action citalopram 20 MG tablet 20 mg PO DAILY RF: 0 desogestrel-ethinyl estradiol [Apri] 0.15-0.03 mg tablet 1 tab PO DAILY Qty: 28 RF: 12 Primary Care Provider: Charlene Bailey Disposition Disposition: Acute Care Hospital Discharge Location: [facility] Discharge Date/Time: 01/12/21 02:04
--- NOTE | 2021-01-11 22:12 | RAD_ITS ---
STUDY: X-RAY CHEST REASON FOR EXAM: Female, 35 years old. chest pain TECHNIQUE: Single AP portable view of the chest. COMPARISON: None. FINDINGS: The lungs are clear and expanded. There is no demonstrated pleural abnormality. Normal size heart. Normal mediastinum and santos. Normal visualized pulmonary arteries. Normal visualized aortic arch and descending thoracic aorta. There is a questionable soft tissue mass in the right hilar region measuring 2.4 x 4 cm Normal visualized thoracic spine. Normal visualized ribs, clavicles, and shoulders. There is no demonstrated abnormality of the visualized soft tissue structures of the upper abdomen. RAD/Chest 1 View (Portable) IMPRESSION: No acute cardiopulmonary disease. Questionable mass in the right hilar region. Chest CT recommended to further evaluate Electronically Signed: Neil Mcmullen DO at 22:41 EDT Tel , Service support ,
[2021-01-11] MEDS: Ondansetron 4 MG/2 ML Vial IV (22:14)
[2021-01-11] MEDS: Mag Hydrox/Al Hydrox/Simeth 30 ML UDC PO (22:14)
[2021-01-11 22:15] LABS: Absolute Lymphocyte Count 1.62 X10^3/uL (0.83-4.51); Absolute Neutrophil Count 11.8 X10^3/uL (2.0-7.7); Basophil# 0.05 X10^3/uL; Basophil% 0.3 % (0-1); Eosinophil# 0.23 X10^3/uL; Eosinophils% 1.6 % (0-5); Hematocrit 36.7 % (37-47); Hemoglobin 11.9 g/dL (12.0-15.0); Lymphocyte # 1.62 X10^3/ul (0.83-4.51); Lymphocyte % 11.2 % (19-41); Mean Corp Hgb Conc 32.4 g/dL (32-36); Mean Corpuscular Hgb 27.4 pg (27.0-32.0); Mean Corpuscular Volume 84.4 fL (81-99); Mean Platelet Vol. 9.7 fl (6.2-12.0); Monocyte# 0.75 X10^3/uL; Monocyte% 5.2 % (0-10); NRBC Flagged by Analyzer 0 % (0-5); Neutrophil # 11.81 X10^3/uL (2.7-7.7); Neutrophil % 81.3 % (47-70); Platelet Count 261 K/mm3 (150-450); RBC Distribution Width CV 13.7 % (11.6-14.6); RBC Distribution Width SD 42.4 fl (35.1-43.9); Red Blood Count 4.35 M/mm3 (4.2-5.4); White Blood Count 14.5 K/mm3 (4.4-11.0)
[2021-01-11 22:29] LABS: Anion Gap 7 (5-15); BUN 12 mg/dL (7-18); BUN/Creat Ratio 12.9 RATIO (10-20); Calcium,Total 8.6 mg/dL (8.5-10.1); Chloride 107 mmol/L (98-107); Creatinine, Serum 0.93 mg/dL (0.55-1.02); EST Glomerular Filtration Rate 73 mL/min (>60); Est Glom Filt Rate - Afr Amer 88 mL/min (>60); Estimated Creatinine Clearance 75.97 ml/min; Glucose 120 mg/dL (74-106); Lipase 78 U/L (73-393); Potassium 3.3 mmol/L (3.5-5.1); Sodium Level 140 mmol/L (136-145)
[2021-01-11 22:34] LABS: AST(SGOT) 17 U/L (15-37); Alanine Aminotransfer ALT/SGPT 23 U/L (13-56); Albumin, Serum 3.6 g/dL (3.2-5.0); Alkaline Phosphatase 54 U/L (45-117); Bilirubin, Direct 0.13 mg/dL (0.00-0.30); Protein, Total 6.6 g/dL (6.4-8.2)
--- NOTE | 2021-01-11 22:49 | CT_ITS ---
STUDY: CT CHEST WITHOUT CONTRAST REASON FOR EXAM: Female, 35 years old. chest pain RADIATION DOSAGE (If Supplied By Facility): CTDIvol = ( 9.19 ) mGy, DLP = ( 362.76 ) mGycm TECHNIQUE: Transaxial imaging was performed without the administration of intravenous contrast material. Individualized dose optimization techniques were used for this CT. COMPARISON: Chest x-ray earlier FINDINGS: As seen on chest x-ray, there is a well-defined ovoid mass in the anterior right middle lobe measuring 3.6 x 2.2 cm. This has a large feeding vessel and draining vein suggesting large pulmonary AVM. Less likely neoplastic process. Otherwise, the lungs are clear. The lungs are normal. There is no demonstrated pleural abnormality. Normal heart and pericardium. Normal mediastinum. Normal hilar regions. Normal unenhanced pulmonary arteries. Normal aorta arch and descending thoracic aorta. Normal osseous structures. There is no demonstrated abnormality of the visualized upper abdomen. CT/Chest without Contrast IMPRESSION: Suggestion of a large pulmonary AVM in the right middle lobe as above. Otherwise, lungs are clear. Nonemergent consultation with plant engineer is recommended. Electronically Signed: Neil Mcmullen DO at 23:32 EDT Tel , Service support ,
[2021-01-11 23:48] VITALS: BP 101/70; PULSE 82; RESP 20; O2SAT 99
[2021-01-12 00:05] VITALS: BP 105/72; BP 109/88; BP 111/74; PULSE 74; PULSE 78; PULSE 93
--- NOTE | 2021-01-12 01:42 | ED.RN ---
Addendum entered by Dionne Walton 01/12/21 01:57: attempted to call report again, no answer. per transfer line unit is busy. Original Note: attempted to call report no answer.
== END 2021-01-12 02:04 | disposition short-term general hospital (02) ==
PROVIDERS: Emergency Provider Student in an Organized Health Care Education/Training Program; PCP Family Medicine
DX: R07.89 Other chest pain (principal); R10.13 Epigastric pain; R55 Syncope and collapse; Q25.72 Congenital pulmonary arteriovenous malformation; F32.9 Major depressive disorder, single episode, unspecified; Z79.899 Other long term (current) drug therapy
CPT/HCPCS: 71045; 71250; 80048; 80076; 83690; 84484; 85025; 87426; 93005; 96374; 99285; J2405

== ENCOUNTER → 2021-04-12 16:44 | Outpatient (CLI) | payer OTHER, SELFPAY ==
--- NOTE | 2021-04-12 17:00 | CT_ITS ---
STUDY: CT CHEST WITH CONTRAST REASON FOR EXAM: Female, 35 years old. Right lung mass. RADIATION DOSAGE (If Supplied By Facility): CTDIvol = ( 10.72 ) mGy, DLP = ( 317.87 ) mGycm TECHNIQUE: Transaxial imaging was performed following intravenous administration of IV 100mL Isovue-370. Multiplanar coronal and sagittal images were reformatted. Individualized dose optimization techniques were used for this CT. COMPARISON: Comparison is made with prior study 01/11/2021. FINDINGS: Since prior study, there has been slight decrease in size of the polypoid soft tissue mass in the anterior right upper lobe. It presently measures 3.1 cm x 1.9 cm. A prominent vascular structure is seen entering the soft tissue mass. There is no demonstrated pleural abnormality. Normal heart and pericardium. Normal mediastinum. Normal hilar regions. Normal enhanced pulmonary arteries. Normal aorta arch and descending thoracic aorta. Normal osseous structures. There is no demonstrated abnormality of the visualized upper abdomen. CT/Chest WITH Contrast IMPRESSION: Slight decrease in size of the soft tissue mass in the right upper lobe. It presently measures 3.1 cm x 1.9 cm. Electronically Signed: Chun Caban MD at 9:39 EST , Service support ,
== END ==
PROVIDERS: PCP Family Medicine; Visit Provider Family Medicine
DX: R91.8 Other nonspecific abnormal finding of lung field (principal); Q25.72 Congenital pulmonary arteriovenous malformation
CPT/HCPCS: 71260; Q9967

== ENCOUNTER 2022-03-24 16:54 | Emergency (ER) | payer OTHER, SELFPAY ==
[2022-03-24 16:55] VITALS: BP 100/65; PULSE 74; RESP 14; TEMP 36.6; O2SAT 100; BMI 25.6
--- NOTE | 2022-03-24 17:11 | EKG12_ITS ---
Test Reason : Blood Pressure : / mmHG Vent. Rate : 070 BPM Atrial Rate : 070 BPM P-R Int : 136 ms QRS Dur : 084 ms QT Int : 406 ms P-R-T Axes : 060 070 053 degrees QTc Int : 438 ms Normal sinus rhythm with sinus arrhythmia Normal ECG Confirmed by KRYSTA AMBROSIO, AMY ([id number]), metropolitan editor MEGHNA PERKINS ([id number]) on 03/25/2022 8:32:50 AM Referred By: USHA Confirmed By:AMY CHAPARRO MD
--- NOTE | 2022-03-24 17:11 | ED.VIS.CHEST ---
HPI History of Present Illness Chief Complaint: Chest Other Informant: patient and spouse/S.O. Narrative Narrative: 36-year-old female presenting to the emergency room with epigastric pain and near syncope. She states that last night her stomach seemed to get very sour she began to feel heartburn and nausea. Today she did not eat or drink anything in her pain in her epigastrium became more intense and burning and she felt weak like she may pass out. This happened about 1 year ago. She does not currently take a antacid medication but she did take an omeprazole and 4000 mg of Tums prior to arrival. No black or bloody stools. No fevers cough sore throat or rhinorrhea. No shortness of breath. [facility] Medical History Depression Home Medications citalopram 20 mg tablet 20 mg PO DAILY depression 10/17/18 [History Last Taken 10/16/18] lorazepam 0.5 mg tablet (Ativan) 0.5 mg PO DAILY PRN 02/14/22 [History Last Taken Unknown] famotidine 20 mg tablet (Pepcid) 20 mg PO BID #30 tabs 03/24/22 [Rx Last Taken Unknown] lidocaine HCl 2 % mucosal solution (Lidocaine Viscous) 10 ml mucous membrane TID PRN pain #100 mL 03/24/22 [Rx Last Taken Unknown] Allergy/AdvReac Type Severity Reaction Status Date / Time No Known Allergies Allergy Verified 03/24/22 16:55 Surgical History delivery delivered Social History number of children: 2 current occupational status: employed 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 Smoking Status: Never smoker alcohol intake: never substance use type: does not use seatbelt use: always do you feel safe at home: Yes additional social history: Seperated ROS ROS ED Constitutional Constitutional ED: Denies chills, fever(s) or weight loss Eyes Eyes: Denies change in vision or diplopia ENT ENT ED: Denies ear pain, rhinorrhea or sore throat Cardiovascular Cardiovascular: Denies chest pain, orthopnea, palpitations or racing heartbeat Respiratory/Chest Respiratory/Chest: Denies cough, dyspnea or orthopnea Gastrointestinal Gastrointestinal: Reports abdominal pain and nausea; Denies constipation, diarrhea or vomiting Genitourinary Genitourinary ED: Denies dysuria, hematuria or urinary frequency Musculoskeletal Musculoskeletal: Denies arthralgias or myalgias Integumentary Denies abscess or rash Neurologic Neurologic: Denies headache(s) or weakness Psychiatric Psychiatric: Denies anxiety, depression, suicidal ideation or suicidal thoughts Endocrine Endocrinology: Denies polydipsia, polyphagia or polyuria Allergic/Immunologic Allergic/Immunologic ED: Denies mouth swelling, tongue swelling or urticaria EXAM Physical Exam Const Vital Signs: 03/24/22 16:55 03/24/22 17:42 03/24/22 17:44 Temperature 97.8 F Temperature Source Temporal Pulse Rate 74 77 Respiratory Rate 14 16 Respiratory Effort Normal Blood Pressure 100/65 108/74 Blood Pressure Mean 76 85 Pulse Ox 100 99 Oxygen Delivery Method Room Air Room Air Positive well nourished and well developed General Appearance ED: well developed HEENT Reports normocephalic, head/scalp atraumatic and moist mucous membranes Eyes PERRL and EOMs intact bilaterally Neck no lymphadenopathy, supple and no JVD Resp normal respiratory effort and clear to auscultation bilaterally Cardio regular rate, regular rhythm and no murmurs GI normal to inspection, nondistended, normoactive bowel sounds and non-tender Palpation: soft Back/Spine no CVA tenderness and normal ROM Extremity normal to inspection General Extremety ED: Negative for edema General Extremity: Negative for edema Neuro oriented x3 and CN's II-XII intact bilaterally Sensorium / Orientation: alert Motor Exam: strength 5/5 throughout Psych mental status grossly normal Mood & Affect: Negative for depressed or tearful Skin no rashes or lesions noted and no wounds MDM MDM MDM Narrative Medical decision making narrative: Basic blood work obtained and was negative. Her EKG does not show anything ischemic in nature. Patient received a GI cocktail and had resolution of her pain. We will place her on twice daily Pepcid as well as write for some viscous lidocaine for severe pain. Patient will discuss this further with her doctor. Lab Data Attestation: I reviewed the patient's lab results. Labs: Laboratory Results - last 24 hr 03/24/22 03/24/22 03/24/22 17:20 17:20 17:20 WBC 8.4 RBC 4.84 Hgb 13.6 Hct 40.4 MCV 83.5 MCH 28.1 MCHC 33.7 RDW Std Deviation 43.1 RDW Coeff of Merlyn 14.1 Plt Count 188 MPV 9.3 Immature Gran % (Auto) 0.200 Neut % (Auto) 84.5 H Lymph % (Auto) 6.7 L [place] % (Auto) 6.0 Eos % (Auto) 2.4 Baso % (Auto) 0.2 Absolute Neuts (auto) 7.1 Absolute Lymphs (auto) 0.56 L Nucleated RBC % 0 Differential Comment SEE COMMENT Platelet Estimate ADEQUATE RBC Morphology N CHROM Anisocytosis RARE Microcytosis RARE Sodium 139 Potassium 4.1 Chloride 108 H Carbon Dioxide 26.0 Anion Gap 5 BUN 11 Creatinine 0.84 Estim Creat Clear Calc 83.31 Est GFR (MDRD) Af Amer 98 Est GFR (MDRD) Non-Af 81 BUN/Creatinine Ratio 13.1 Glucose 109 H Calcium 8.6 Total Bilirubin 0.70 Direct Bilirubin 0.17 AST 14 L ALT 19 Alkaline Phosphatase 65 Troponin I High Sens < 3 L Total Protein 6.7 Albumin 3.6 Globulin 3.1 Lipase 76 Serum , Qual NEGATIVE EKG Initial EKG: Comments: Normal sinus rhythm with a ventricular rate of 70 bpm Discharge Plan Triage Chief Complaint: Chest Other ED Provider: Ace Carpenter Dx/Rx/DC Orders Clinical Impression: Chest pain, Chest pain due to GERD, Near syncope Instructions: What Is GERD? Prescriptions: New famotidine [Pepcid] 20 mg tablet 20 mg PO BID Qty: 30 0RF lidocaine HCl [Lidocaine Viscous] 2 % solution 10 ml mucous membrane TID PRN (Reason: pain) Qty: 100 0RF No Action lorazepam [Ativan] 0.5 mg tablet 0.5 mg PO DAILY PRN citalopram 20 MG tablet 20 mg PO DAILY Primary Care Provider: Charlene Bailey Referrals: Charlene Bailey MD [Primary Care Provider] - 1-2 Weeks Disposition Disposition: Home, Self Care
[2022-03-24 17:35] LABS: Absolute Lymphocyte Count 0.56 X10^3/uL (0.83-4.51); Absolute Neutrophil Count 7.1 X10^3/uL (2.0-7.7); Basophil# 0.02 X10^3/uL; Basophil% 0.2 % (0-1); Eosinophils% 2.4 % (0-5); Hematocrit 40.4 % (37-47); Hemoglobin 13.6 g/dL (12.0-15.0); Lymphocyte # 0.56 X10^3/ul (0.83-4.51); Lymphocyte % 6.7 % (19-41); Mean Corp Hgb Conc 33.7 g/dL (32-36); Mean Corpuscular Hgb 28.1 pg (27.0-32.0); Mean Corpuscular Volume 83.5 fL (81-99); Mean Platelet Vol. 9.3 fl (6.2-12.0); NRBC Flagged by Analyzer 0 % (0-5); Neutrophil # 7.09 X10^3/uL (2.7-7.7); Neutrophil % 84.5 % (47-70); POSITIVE DIFFERENTIAL YES; Platelet Count 188 K/mm3 (150-450); RBC Distribution Width CV 14.1 % (11.6-14.6); RBC Distribution Width SD 43.1 fl (35.1-43.9); Red Blood Count 4.84 M/mm3 (4.2-5.4); White Blood Count 8.4 K/mm3 (4.4-11.0)
[2022-03-24 17:36] LABS: Differential Indicated SCAN CRITERIA MET
[2022-03-24] MEDS: 0.9% Normal Saline 1,000 ML 1000 ML IV (17:39)
[2022-03-24] MEDS: Mag Hydrox/Al Hydrox/Simeth 30 ML UDC PO (17:40)
[2022-03-24 17:44] VITALS: BP 108/74; PULSE 77; RESP 16; O2SAT 99
[2022-03-24 17:45] LABS: Internal QC Validated? YES +Cl - CLEAR BKGD; Pregnancy, Serum, hCG Quali. NEGATIVE Negative
[2022-03-24 17:53] LABS: AST(SGOT) 14 U/L (15-37); Alanine Aminotransfer ALT/SGPT 19 U/L (13-56); Albumin, Serum 3.6 g/dL (3.2-5.0); Alkaline Phosphatase 65 U/L (45-117); Anion Gap 5 (5-15); BUN 11 mg/dL (7-18); BUN/Creat Ratio 13.1 RATIO (10-20); Bilirubin, Direct 0.17 mg/dL (0.00-0.30); Calcium,Total 8.6 mg/dL (8.5-10.1); Chloride 108 mmol/L (98-107); Creatinine, Serum 0.84 mg/dL (0.55-1.02); EST Glomerular Filtration Rate 81 mL/min (>60); Est Glom Filt Rate - Afr Amer 98 mL/min (>60); Estimated Creatinine Clearance 83.31 ml/min; Globulin 3.1 g/dL (2.2-4.2); Glucose 109 mg/dL (74-106); Lipase 76 U/L (73-393); Potassium 4.1 mmol/L (3.5-5.1); Protein, Total 6.7 g/dL (6.4-8.2); Sodium Level 139 mmol/L (136-145); Troponin-I HS < 3 pg/mL (3.0-54.0)
[2022-03-24 18:04] LABS: Anisocytosis RARE; Microcytosis RARE; Platelet Estimate ADEQUATE (ADEQ); Red Cell Morphology N CHROM NORMAL (NORM C&C)
[2022-03-24 18:32] VITALS: BP 107/72; PULSE 80; RESP 16; O2SAT 100
== END 2022-03-24 18:42 | disposition home or self-care (01) ==
PROVIDERS: Emergency Provider Emergency Medicine; PCP Family Medicine; Visit Provider Emergency Medicine
DX: R07.9 Chest pain, unspecified (principal); R55 Syncope and collapse; K21.9 Gastro-esophageal reflux disease without esophagitis; R10.13 Epigastric pain; F32.A Depression, unspecified; Z79.899 Other long term (current) drug therapy
CPT/HCPCS: 80048; 80076; 83690; 84484; 84703; 85025; 93005; 96360; 99283; J7030; A4216

== ENCOUNTER → 2022-05-02 | Outpatient (CLI) | payer OTHER, SELFPAY ==
--- NOTE | 2022-05-02 15:18 | US_ITS ---
STUDY: Ultrasound pelvis non-OB with transvaginal vascular Doppler imaging This includes a transvaginal and transabdominal portions of the exam. CLINICAL: Female, 37 years old. IUD check TECHNIQUE: Transabdominal and Transvaginal with Doppler COMPARISON: None. FINDINGS: Normal uterine size measuring 9.0 x 5.0 x 4.4 cm in maximal craniocaudal dimension. Within the superior side of the uterus on image #3 there is a suggestion that there may be a fibroid versus artifact that measures 1.6 x 1.8 cm. Normal endometrial thickness measuring 6 mm. There are no endometrial masses, and there is no fluid in the endometrial cavity. There is a visualize IUD positioned within the fundal portion of the endometrium in the expected location. Normal uterine cervix. Normal right ovary, measuring 2.4 x 2.1 x 1.4 cm. There are multiple follicles without a dominant cyst. No torsion Normal left ovary, measuring 3.9 x 2.6 x 2.2 cm. There are multiple follicles without a dominant cyst. No torsion There is no free fluid in the pelvis. 60 mL volume was demonstrated within the transabdominal bladder. There is no visualized wall thickening. Polycystic ovary disease: No. US/Transvaginal Non- IMPRESSION: The IUD appears to be in satisfactory position. Findings suggest possible superiorly located fibroid measuring 1.6 x 1.8 cm. No visualized torsion. Electronically Signed: Mansi Butler MD at 18:59 EST ,
--- NOTE | 2022-05-02 15:18 | US_ITS ---
STUDY: Ultrasound pelvis non-OB with transvaginal vascular Doppler imaging This includes a transvaginal and transabdominal portions of the exam. CLINICAL: Female, 37 years old. IUD check TECHNIQUE: Transabdominal and Transvaginal with Doppler COMPARISON: None. FINDINGS: Normal uterine size measuring 9.0 x 5.0 x 4.4 cm in maximal craniocaudal dimension. Within the superior side of the uterus on image #3 there is a suggestion that there may be a fibroid versus artifact that measures 1.6 x 1.8 cm. Normal endometrial thickness measuring 6 mm. There are no endometrial masses, and there is no fluid in the endometrial cavity. There is a visualize IUD positioned within the fundal portion of the endometrium in the expected location. Normal uterine cervix. Normal right ovary, measuring 2.4 x 2.1 x 1.4 cm. There are multiple follicles without a dominant cyst. No torsion Normal left ovary, measuring 3.9 x 2.6 x 2.2 cm. There are multiple follicles without a dominant cyst. No torsion There is no free fluid in the pelvis. 60 mL volume was demonstrated within the transabdominal bladder. There is no visualized wall thickening. Polycystic ovary disease: No. US/Pelvic (Non ) IMPRESSION: The IUD appears to be in satisfactory position. Findings suggest possible superiorly located fibroid measuring 1.6 x 1.8 cm. No visualized torsion. Electronically Signed: Mansi Butler MD at 18:59 EST ,
== END | disposition home or self-care (01) ==
LOC: US 15:18
PROVIDERS: PCP Family Medicine; Referring Provider Nurse Practitioner Women's Health; Visit Provider Nurse Practitioner Women's Health
DX: Z30.431 Encounter for routine checking of intrauterine contraceptive device (principal)
CPT/HCPCS: 76830; 76856

== ENCOUNTER → 2022-08-19 | Outpatient (CLI) | payer OTHER, SELFPAY ==
--- NOTE | 2022-08-19 14:26 | BI_ITS ---
MAMMOGRAPHY - BILATERAL DIAGNOSTIC REASON FOR EXAM: Female, 37 years old. Palpable lump in the upper-outer quadrant of the left breast. PERTINENT HISTORY: TECHNIQUE: Digital bilateral breast aide (3D mammographic acquisition) in the CC and MLO projections. 2-D mediolateral oblique (MLO) and craniocaudad (CC) views of both breasts were obtained. CAD: Full Field Digital Mammography with Computer Added Detection was performed. COMPARISON: None. Baseline examination. FINDINGS: Breast Composition: The breasts are heterogeneously dense, which may obscure small masses. There are no dominant masses or suspicious calcifications. No other significant abnormalities are identified. BI/DIAG MAMM W/CAD, BILAT IMPRESSION: Negative diagnostic mammogram. With the patient''s history of a palpable lump in the upper outer quadrant of the left breast, correlation with ultrasound is recommended. ASSESSMENT CATEGORY: BIRADS Category 0: Incomplete. Need additional imaging evaluation. A letter regarding these results will be sent to the patient by the facility within 30 days. Approximately 10% of breast cancers are not detected by mammography. A normal mammogram should not delay biopsy of a clinically suspicious abnormality. Electronically Signed: Chun Caban MD at 15:23 EDT ,
--- NOTE | 2022-08-19 15:06 | US_ITS ---
STUDY: ULTRASOUND BREAST - LEFT REASON FOR EXAM: Female, 37 years old. Pain in the left breast. TECHNIQUE: Axial and longitudinal images of the LEFT breast were performed with a high resolution ultrasound transducer. # OF IMAGES: 26 COMPARISON: Comparison is made with prior mammogram done earlier in the day. FINDINGS: LEFT Breast: The upper outer quadrant of the left breast was examined with ultrasound. There is heterogeneously dense fibroglandular tissue. No sonographic abnormality is seen. US/Breast Limited Unilateral IMPRESSION: No sonographic abnormality is seen. ASSESSMENT CATEGORY: BIRADS Category 1: Negative. A letter regarding these results will be sent to the patient by the facility within 30 days. Electronically Signed: Chun Caban MD at 16:23 EDT ,
== END | disposition home or self-care (01) ==
PROVIDERS: PCP Family Medicine; Referring Provider Family Medicine; Visit Provider Family Medicine
DX: N63.21 Unspecified lump in the left breast, upper outer quadrant (principal)
CPT/HCPCS: 76642; 77062; 77066; G0279

== ENCOUNTER → 2023-03-06 | Outpatient (CLI) | payer OTHER, SELFPAY ==
[2023-03-08 22:06] LABS: Chlamydia By Nucleic Acid AMP Negative (Negative); Gonococcus By Nucleic Acid AMP Negative (Negative)
== END | disposition home or self-care (01) ==
LOC: LABSPEC 14:13
PROVIDERS: PCP Family Medicine; Referring Provider Nurse Practitioner Women's Health; Visit Provider Nurse Practitioner Women's Health
DX: Z11.3 Encounter for screening for infections with a predominantly sexual mode of transmission (principal)
CPT/HCPCS: 87491; 87591

== ENCOUNTER → 2023-04-18 | Outpatient (CLI) | payer OTHER, SELFPAY ==
[2023-04-18 09:23] LABS: Hematocrit 45.4 % (37-47); Hemoglobin 14.7 g/dL (12.0-15.0); Mean Corp Hgb Conc 32.4 g/dL (32-36); Mean Corpuscular Hgb 28.6 pg (27.0-32.0); Mean Corpuscular Volume 88.3 fL (81-99); Mean Platelet Vol. 9.6 fl (6.2-12.0); Platelet Count 198 K/mm3 (150-450); RBC Distribution Width CV 13.1 % (11.6-14.6); RBC Distribution Width SD 42.3 fl (35.1-43.9); Red Blood Count 5.14 M/mm3 (4.2-5.4)
[2023-04-18 09:31] LABS: Internal QC Validated? YES +Cl - CLEAR BKGD; Pregnancy, Serum, hCG Quali. NEGATIVE Negative
[2023-04-18 09:41] LABS: Cholesterol 169 mg/dL (200); High Density Lipoprotein 65 mg/dL; Triglycerides 86 mg/dL; Very Low Density Lipoprotein 17 mg/dL (5-40)
--- NOTE | 2023-04-18 17:55 | PCM.TILTTABL ---
Staff Staff: Anuradha Astorga and Fiona Bowen Summary Pre Test Resting HR: 72 Pre Test Resting BP: 113/85 Minimum Test HR: 69 Maximum Test HR: 127 Minimum Test BP: 0/0 Maximum Test BP: 118/76 Reason for Test Termination: Syncope Physician Tilt Table Report Patient's Physicians Primary Care Physician: Charlene Bailey Indications/Diagnosis: Syncope Procedure Comments: The patient was brought to the noninvasive lab in the postabsorptive nonsedated state. Informed consent was obtained. Initial EKG was obtained demonstrating sinus rhythm at 72 bpm and a blood pressure 119/86 mmHg. The patient was then put in the 70 degree upright tilt position with continuous EKG monitoring as well as heart rate and blood pressure. Patient maintained normal blood pressures and heart rate and remained asymptomatic. After 20 minutes the patient was then put back in the recumbent position and administered 0.4 mg of sublingual nitroglycerin. Initial heart rate was 90 bpm with a blood pressure of 116/90 mmHg. The patient's heart rate after 2 minutes went up to 127 bpm and blood pressure declined to 90/72 mmHg. Patient started complaining of a tingling feeling like she was going to pass out. The heart rate then began to dip to 83 and then a uday of 69 and blood pressures which were not palpable. The patient was noted to be pale. She apparently passed out and then the tilt table was put back in the recumbent position with improvement in the blood pressure and heart rate. Summary: Positive tilt table test suggestive of vasodepressor or vasovagal syncope.
[2023-04-18 18:01] VITALS: BP 0/0; BP 113/85; BP 118/76
== END | disposition home or self-care (01) ==
LOC: CVS 09:08
PROVIDERS: PCP Family Medicine; Referring Provider Internal Medicine Cardiovascular Disease; Visit Provider Internal Medicine Cardiovascular Disease
DX: Z01.812 Encounter for preprocedural laboratory examination (principal); R55 Syncope and collapse
CPT/HCPCS: 36415; 80061; 84703; 85027; 93660

== ENCOUNTER → 2023-04-19 | Outpatient (CLI) | payer OTHER, SELFPAY ==
--- NOTE | 2023-04-19 09:04 | ECHOD_ITS ---
Reason For Study: SYNCOPE AND COLLAPSE Procedure This was a 2D Doppler, Color Flow transthoracic echocardiogram. Exam performed in department. Left Ventricle Normal LV size. Left ventricular systolic function is normal. The estimated ejection fraction is 55 %. No evidence for diastolic dysfunction. No regional wall motion abnormalities noted. Right Ventricle Normal RV size. Normal systolic function. Atria The left and right atria are normal. Mitral Valve The mitral valve is structurally normal. No prolapse or stenosis seen. Trivial mitral valve insufficiency. Tricuspid Valve Normal tricuspid valve. Trivial tricuspid valve insufficiency. Right ventricular systolic pressure estimated to be 20 mmHg. Aortic Valve Trisinus/trileaflet aortic valve. Trivial aortic valve insufficiency. Pulmonic Valve Normal pulmonic valve. Trivial pulmonic valve insufficiency. Great Vessels Normal aortic root. Pericardium/Pleural No pericardial effusion. MMode/2D Measurements & Calculations LVIDd: 4.8 cm IVSd: 0.66 cm Ao root diam: 2.9 cm LVIDs: 3.7 cm LVPWd: 0.92 cm RVDd: 3.0 cm FS: 22.9 % LAV(MOD-bp): 32.8 ml LVAd ap4: 26.1 cm2 LVAd ap2: 31.9 cm2 LAV(MOD-bp) Indexed: 19.2 ml/m2 LVLd ap4: 7.3 cm LVLd ap2: 8.5 cm LAV(MOD-sp2): 42.1 ml EDV(MOD-sp4): 78.2 ml EDV(MOD-sp2): 102.2 ml LAV(MOD-sp4): 21.9 ml EDV(sp4-el): 79.3 ml EDV(sp2-el): 101.8 ml LVAs ap4: 16.8 cm2 LVAs ap2: 19.7 cm2 LVLs ap4: 6.5 cm LVLs ap2: 6.9 cm ESV(MOD-sp4): 37.4 ml ESV(MOD-sp2): 48.6 ml ESV(sp4-el): 36.7 ml ESV(sp2-el): 48.2 ml EF(MOD-sp4): 52.1 % EF(MOD-sp2): 52.4 % EF(sp4-el): 53.7 % SV(MOD-sp4): 40.8 ml SV(MOD-sp2): 53.6 ml SV(sp4-el): 42.6 ml LA dimension(2D): 2.7 cm LA A4 area: 10.8 cm2 RA A4 area: 12.0 cm2 TAPSE: 2.0 cm Time Measurements MV dec time: 0.16 sec Doppler Measurements & Calculations MV E max jesu: 71.0 cm/sec Lat Peak E' Jesu: 10.2 cm/sec Med Peak E' Jesu: 10.1 cm/sec MV A max jesu: 56.5 cm/sec E/E' lat: 6.9 E/E' med: 7.0 MV E/A: 1.3 MV V2 max: 86.4 cm/sec MV dec slope: 446.2 cm/sec2 Ao V2 max: 112.2 cm/sec MV max P.0 mmHg Ao max P.0 mmHg MV V2 mean: 55.9 cm/sec Ao V2 mean: 77.3 cm/sec MV mean P.4 mmHg Ao mean P.7 mmHg MV V2 VTI: 22.8 cm Ao V2 VTI: 23.3 cm AV (velocity ratio): 0.75 LV V1 max: 93.8 cm/sec PA V2 max: 84.0 cm/sec TR max jesu: 204.9 cm/sec LV V1 max P.5 mmHg PA V2 mean: 64.8 cm/sec TR max P.8 mmHg LV V1 mean P.8 mmHg LV V1 mean: 61.9 cm/sec LV V1 VTI: 17.5 cm ECHO/Echo Complete Interpretation Summary No evidence for diastolic dysfunction. The estimated ejection fraction is 55 %. Ordering Physician: Zacarias Mcclendon Referring Physician: Zacarias Mcclendon Performed By: Niurka Delaney RCS
== END | disposition home or self-care (01) ==
LOC: CVS 09:02
PROVIDERS: PCP Family Medicine; Referring Provider Internal Medicine Cardiovascular Disease; Visit Provider Internal Medicine Cardiovascular Disease
DX: R55 Syncope and collapse (principal)
CPT/HCPCS: 93306; J7040; A4216

== ENCOUNTER → 2023-04-21 | Outpatient (CLI) | payer OTHER, SELFPAY ==
--- NOTE | 2023-04-21 09:53 | STE_ITS ---
Reason For Study: Syncope and Collapse Stress Results Protocol: Stress Echocardiogram-Jose Protocol Maximum Predicted HR: 182 bpm Target HR: 155 bpm % Maximum Predicted HR: 94 % DurationHeart Rate Stage (mm:ss) (bpm) BP Comment Baseline 73 116/78Patient denies chest pain Stage 1 3:00 93 110/74Patient denies chest pain Stage 2 3:00 110 128/70Patient denies chest pain Stage 3 3:00 125 144/76Patient denies chest pain Stage 4 3:00 171 148/76Shortness of breath. Patient denies chest pain. Recovery 97 112/80Patient denies chest pain or shortness of breath Stress Duration: 12:00 mm:ss Maximum Stress HR: 171 bpm Baseline Echocardiogram Findings Stress Echo Wall motion Data Resting WM Intermediate WM Stress WM Resting Wall Motion Wall Motion Stress No regional wall motion All segments Hyperkinetic. abnormalities noted. EKG Data The baseline ECG displays normal sinus rhythm. The stress ECG displays normal ST segments. ECHO/Stress Test Echo w/o Contrast Interpretation Summary Negative exercise stress echo. Patient exercised on the treadmill according to the Jose protocol for total of 12 minutes. 93% of maximal predicted heart rate achieved. Workload 13.40 METS. Normal blood pressure response to exercise. No chest pain reported during exercise or in recovery. No ECG evidence of ischemia with exercise or in recovery. Normal augmentation of all echo segments with exercise. Ordering Physician: Zacarias Mcclendon Referring Physician: Zacarias Mcclendon Performed By:
== END | disposition home or self-care (01) ==
LOC: CVS 09:51
PROVIDERS: PCP Family Medicine; Referring Provider Internal Medicine Cardiovascular Disease; Visit Provider Internal Medicine Cardiovascular Disease
DX: R55 Syncope and collapse (principal)
CPT/HCPCS: 93017; 93350

== ENCOUNTER → 2023-05-16 | Outpatient (CLI) | payer OTHER, SELFPAY ==
[2023-05-16 10:20] LABS: Erythrocyte Sedimentation Rate < 1 mm/hr (0-30)
[2023-05-16 10:38] LABS: Cholesterol 164 mg/dL (200); Glucose 72 mg/dL (74-106); High Density Lipoprotein 66 mg/dL; Triglycerides 61 mg/dL; Very Low Density Lipoprotein 12 mg/dL (5-40)
[2023-05-16 10:39] LABS: Vitamin D,25 Hydroxy 29.5 ng/mL
[2023-05-16 10:49] LABS: Amylase 54 U/L (25-115); CRP < 2.90 mg/L (0.0-3.0); Lipase 32 U/L (13-75)
[2023-05-17 11:09] LABS: Anti-Centromere B Ab <0.2 AI (0.0-0.9); Anti-Chromatin <0.2 AI (0.0-0.9); Anti-Jo <0.2 AI (0.0-0.9); Anti-Scleroderma-70 AB <0.2 AI (0.0-0.9); Anti-dsDNA Ab 3 IU/mL (0-9); RNP Ab <0.2 AI (0.0-0.9); SJOGREN'S Anti-SS-A test < 0.2 AI (0.0-0.9); SJOGREN'S Anti-SS-B test < 0.2 AI (0.0-0.9); Smith Ab <0.2 AI (0.0-0.9)
[2023-05-18 17:07] LABS: Cytoplasmic Ab (C-ANCA) <1:20 titer (Neg:<1:20); Deamidated Gliadin IgA 12 units (0-19); Deamidated Gliadin IgG 4 units (0-19); Endomysial Antibody IgA Negative (Negative); Gastrin, Serum 80 pg/mL (0-115); Immunoglobulin A 261 mg/dL (87-352); Perinuclear Ab (P-ANCA) <1:20 titer (Neg:<1:20); t-Transglutaminase IgA <2 U/mL (0-3)
== END | disposition home or self-care (01) ==
PROVIDERS: Nurse Practitioner Women's Health; PCP Family Medicine; Referring Provider Internal Medicine Gastroenterology; Visit Provider Internal Medicine Gastroenterology
DX: Z13.21 Encounter for screening for nutritional disorder (principal); R55 Syncope and collapse; R10.13 Epigastric pain; Z13.1 Encounter for screening for diabetes mellitus; Z13.220 Encounter for screening for lipoid disorders
CPT/HCPCS: 36415; 80061; 82150; 82306; 82784; 82941; 82947; 83516; 83690; 84443; 85652; 86140; 86225; 86235; 86255; 86256

== ENCOUNTER → 2023-05-17 | Outpatient (CLI) | payer OTHER, SELFPAY ==
[2023-05-25 18:07] LABS: 5-HIAA, 24UR 4.3 mg/24 hr (0.0-14.9); 5-HIAA, UR 1.5 mg/L (Undefined)
== END | disposition home or self-care (01) ==
LOC: LABSPEC 09:02
PROVIDERS: PCP Family Medicine; Referring Provider Internal Medicine Gastroenterology; Visit Provider Internal Medicine Gastroenterology
DX: R10.13 Epigastric pain (principal); R55 Syncope and collapse
CPT/HCPCS: 81050; 83497

== ENCOUNTER → 2023-05-18 | Outpatient (CLI) | payer OTHER, SELFPAY ==
[2023-05-18 10:47] LABS: D-Dimer Quantitative (DVT/PE) < 0.27 FEU/ug/m (0.27-0.49)
[2023-05-25 16:08] LABS: Adrenocorticotropic Hormone 20.9 pg/mL (7.2-63.3); Albumin 4.2 g/dL (2.9-4.4); Aldosterone, Serum 24.2 ng/dL (0.0-30.0); Alpha-1-Globulins 0.1 g/dL (0.0-0.4); Alpha-2-Globulins 0.4 g/dL (0.4-1.0); Chromogranin A 43.3 ng/mL (0.0-101.8); Gamma Globulin 0.7 g/dL (0.4-1.8); Immunoglobulin A 232 mg/dL (87-352); Immunoglobulin G 744 mg/dL (586-1602); Immunoglobulin M 126 mg/dL (26-217); PROEL- TOTAL PROTEIN 6.4 g/dL (6.0-8.5); Serotonin, Serum 12 ng/mL (31-207)
[2023-05-25 17:07] LABS: Dopamine, 24Ur 252 ug/24 hr (0-510); Dopamine, UR 120 ug/L (Undefined); Epinephrine, 24Ur < 6 ug/24 hr (0-20); Epinephrine, Ur < 3 ug/L (Undefined); Norepinephrine, 24Ur 40 ug/24 hr (0-135); Norepinephrine, Ur 19 ug/L (Undefined); VMA, 24UR 3.2 mg/24 hr (0.0-7.5); VMA, UR 1.5 mg/L (Undefined)
== END | disposition home or self-care (01) ==
LOC: LAB 09:46
PROVIDERS: PCP Family Medicine; Visit Provider Internal Medicine Gastroenterology
DX: R10.13 Epigastric pain (principal); R55 Syncope and collapse
CPT/HCPCS: 36415; 81050; 82024; 82088; 82384; 82533; 82784; 84165; 84260; 84585; 85379; 86316; 86334

== ENCOUNTER → 2023-07-25 | Outpatient (CLI) | payer OTHER, SELFPAY ==
--- OUTSIDE RECORDS SUMMARY | 2023-07-25 09:17 | XMS RPT_ITS | CCD ---
Author Name Unknown Address [address] [place] [address] Organization [facility] Care Team Providers Care Diaper Machine Tender Name Role Phone Charlene Bailey Primary Care Provider [phone] Medications Current Medications Medication Drug Class(es) Dates Sig (Normalized) Sig (Original) Acetaminophen (1 source) Start: 01-12-2021 acetaminophen (TYLENOL) tablet 650 mg citalopram 20 mg oral tablet (1 source) Serotonin Reuptake Inhibitor take 1 tablet by mouth once daily citalopram (CELEXA) 20 MG tablet Take 20 mg by mouth daily 0 Active desogestrel 0.15 mg / ethinyl estradiol 0.03 mg oral tablet (1 source) Progestin, Estrogen take 1 tablet by mouth once daily, then take 0.15-30 tablets by mouth once desogestrel-ethinyl estradiol (ENSKYCE) 0.15-30 MG-MCG per tablet Take 1 tablet by mouth daily 0 Active ibuprofen 200 mg oral tablet (1 source) Nonsteroidal Anti-inflammatory Drug take 2 tablets by mouth every six hours as needed for pain ibuprofen (ADVIL;MOTRIN) 200 MG tablet Take 400 mg by mouth every 6 hours as needed for Pain 0 Active melatonin 5 mg oral tablet (1 source) Start: 01-12-2021 take 5 mg by mouth once daily as needed for sleep 5 mg, Oral, NIGHTLY PRN, sleep, Starting on Mon01/12/21 at 2100 ondansetron (ZOFRAN-ODT) disintegrating tablet 4 mg (1 source) Start: 01-12-2021 ondansetron (ZOFRAN-ODT) disintegrating tablet 4 mg perflutren lipid microspheres (DEFINITY) injection 1.65 mg (1 source) Start: 01-12-2021 End: 01-15-2021 1.65 mg (1.5 mL), Intravenous, IMG ONCE PRN, Other, Suboptimal Echo Image, Starting on Mon01/12/21 at 0436, For 72 hours Administer up to 1.65 mg via slow IVP for suboptimal echocardiogram enhancement. M ay administer as concentrated dose or diluted in 8.5 mL of 0.9% sodium chloride for a total volume of 10 mL. May administer as divided doses to reach optimal image enhancement. polyethylene glycol 3350 93803 mg powder for oral solution (1 source) Osmotic Laxative Start: 01-12-2021 17 g, Oral, DAILY PRN, Constipation, Starting on Mon01/12/21 at 0436 First line therapy for constipation 3 ml sodium chloride 9 mg/ml injection (4 sources) Start: 01-12-2021 take 1 dose intravenously twice daily 5-40 mL, Intravenous, EVERY 12 HOURS SCHEDULED (2 times per day), First dose on Mon01/12/21 at 0900 For Line Patency: Peripheral IV = 5 mL; Midline or Central Line = 10 mL/lumen. &nbs p;If following IV push medication, administer flush at same rate as the IV push. Flush volume is determined by type of infusion therapy being given. F or non-viscous solutions use: Periphera l IV = 5 mL Midline or Central Line = 10 mL/lumen &nbsp ;For viscous solutions (i.e. blood components, parenteral nutrition, contrast media, or after obtaining blood sample) use: Periphera l IV = 10 mL Midline or Central Line = 20 mL/lumen Completed/Discontinued Medications Medication Drug Class(es) Dates Sig (Normalized) Sig (Original) calcium chloride 0.0014 meq/ml / potassium chloride 0.004 meq/ml / sodium chloride 0.103 meq/ml / sodium lactate 0.028 meq/ml injectable solution (1 source) Start: 01-12-2021 End: 01-13-2021 Intravenous, at 100 mL/hr, CONTINUOUS, Starting on Mon01/12/21 at 0500 1L Once microencapsulated potassium chloride 10 meq extended release oral tablet (1 source) Start: 01-12-2021 End: 01-12-2021 potassium chloride (KLOR-CON M) extended release tablet 40 mEq Problems Problem Classification Problem Date Documented Date Episodic/Chronic Cardiac and circulatory congenital anomalies (2 sources) Pulmonary arteriovenous malformation; 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] Onset: 01-12-2021 Chronic Diseases of white blood cells (2 sources) Leukocytosis; Translations: [Elevated white blood cell count, unspecified] Onset: 01-12-2021 Resolved: 01-12-2021 Chronic Nonspecific chest pain (2 sources) Chest pain; Translations: [Chest pain, unspecified] Onset: 01-12-2021 Resolved: 01-12-2021 Episodic Other hematologic conditions (2 sources) Protein level - finding; Translations: [Other specified abnormalities of plasma proteins] Onset: 01-12-2021 Resolved: 01-12-2021 Episodic Syncope (2 sources) Syncope and collapse; Translations: [Syncope and collapse] Onset: 01-12-2021 Episodic Results Test Name Value Interpretation Reference Range Facil ity Vital Signs Date Time Vital Sign Value Performing Clinician Faci lity 01-13-2021 12:23-0400 Body temperature 97.2 [degF] Christian Howard MD [facility] Work Phone: 01-13-2021 12:23-0400 Diastolic blood pressure 76 mm[Hg] Christian Howard MD Work Phone: [facility] Work Phone: 01-13-2021 12:23-0400 Heart rate 68 /min Christian Howard MD Work Phone: [facility] Work Phone: 01-13-2021 12:23-0400 Respiratory rate 18 /min Christian Howard MD Work Phone: [facility] Work Phone: 01-13-2021 12:23-0400 SaO2% (BldA) [Mass fraction] 100 % Christian Howard MD Work [facility] Work Phone: 01-13-2021 12:23-0400 Systolic blood pressure 115 mm[Hg] Christian Howard MD Work Phone: [facility] Work Phone: Encounters Encounter Date Encounter Type Care Provider Facility Start: 01-12-2021 End: 01-13-2021 Evaluation and management of inpatient Christian Howard MD Work Phone: [facility] Procedures Date Procedure Procedure Detail Performing Clinician Start: 01-13-2021 Ct angiography chest w/contrast/noncontrast Deep Davenport DO Work Phone: Start: 01-13-2021 BASIC METABOLIC PANE L W/ REFLEX TO MG FOR LOW K Christian Howard MD Work Phone: Start: 01-13-2021 Blood count complete automated Christian Howard MD Work Phone: Start: 01-12-2021 RESPIRATORY PANEL, MOLECULAR, WITH COVID-19 Deep Davenport DO Work Phone: Start: 01-12-2021 Urine test visual color cmprsn meths Jefe Kusar DO Work Phone: Start: 01-12-2021 Assay of magnesium Johnny Howard MD Work Phone: Start: 01-12-2021 BASIC METABOLIC PANE L W/ REFLEX TO MG FOR LOW K Christian Howard MD Work Phone: Start: 01-12-2021 Echo tthrc r-t 2d w/wom-mode compl spec&colr d Christian Howard MD Work Phone: Start: 01-12-2021 Ecg routine ecg w/le ast 12 lds w/i&r Christian Howard MD Work Phone: Plan of Treatment Date Care Activity Detail Author Start: 01-27-2021 Influenza vaccination Flu vaccine (# 1) [facility] Work Phone: Start: 1997 COVID-19 Vaccine (1) COVID-19 Vaccin e (1) [facility] Work Phone: Basic Metabolic Pane l w/ Reflex to MG Basic Metabolic Panel w/ Reflex to MG Lab Routine Daily until discontinued starting 01/12/2021, 2 completed [facility] Work Phone: Payers Date Payer Category Payer Unknown [employer] [address] [id number] 2020-Present [phone] [address] [place] [address] [id number] Social History Date Type Detail Facility Tobacco smoking stat [facility] Unknown if ever smoked [facility] Work Phone: Start: 1985 Sex Assigned At Not on file [facility] Work Phone: Exposure to SARS-CoV -2 (event) Not sure [facility] Progress note 05-27-2021 Note Date & Type Note Facility 05-27-2021 Note HNO ID: [id number] Author: Hyun Johns APRN.[employer]OADCAST OPERATIONS DIRECTOR Service: ? Author Type: Nurse Practitioner Type: Progress Notes Filed: 05/27/2021 9:40 AM Note Text: Subjective The history is provided by the patient. No english language arts teacher was used. HPI Sally Escobar is a 36 year old female who presents today for CC of cough and headache for 2 days Symptoms include: Fever (?100.4F): No or Chills: No Cough: Yes Shortness of breath: No or Difficulty breathing: No Fatigue: No Muscle aches: Yes Headache: Yes New loss of smell or taste: No Sore throat: No Nasal congestion: No or Rhinorrhea: No Nausea: No or Vomiting: No Diarrhea: No OTC meds/remedies that patient has tried: acetaminophen. High risk category assessment No high risk factors Exposures: Sick contacts? Yes Family or close contacts with confirmed/probable COVID-19 in last 14 days? Yes BP 122/80 Pulse 84 Temp 36.5 ?C (97.7 ?F) Resp 16 Wt 71.7 kg (158 lb) SpO2 99% Social History Tobacco Use - Smoking status: Never Smoker - Smokeless tobacco: Never Used Substance Use Topics - Alcohol use: Not on file - Drug use: Not on file No past medical history on file. I have confirmed and edited as necessary, the [facility] Review of Systems Constitutional: Negative for chills and fever. HENT: Negative for congestion, ear pain, sinus pain and sore throat. Respiratory: Positive for cough. Negative for sputum production, shortness of breath and wheezing. Cardiovascular: Negative for chest pain. Musculoskeletal: Negative for myalgias. Neurological: Positive for headaches. Objective Physical Exam Vitals and nursing note reviewed. HENT: Head: Normocephalic and atraumatic. Right Ear: Tympanic membrane, ear canal and external ear normal. Left Ear: Tympanic membrane, ear canal and external ear normal. Nose: No mucosal edema, congestion or rhinorrhea. Mouth/Throat: Pharynx: Uvula midline. No posterior oropharyngeal erythema. Cardiovascular: Rate and Rhythm: Normal rate and regular rhythm. Pulses: Normal pulses. Heart sounds: Normal heart sounds. Pulmonary: Breath sounds: Normal breath sounds. Lymphadenopathy: Head: Right side of head: No submental, submandibular or tonsillar adenopathy. Left side of head: No submental, submandibular or tonsillar adenopathy. Cervical: No cervical adenopathy. Skin: General: Skin is warm and dry. Neurological: Mental Status: She is alert. Psychiatric: Mood and Affect: Affect normal. ASSESSMENT/PLAN: 1. Cough - ICD9: 786.2, ICD10: R05.9 (primary diagnosis) Robitussin DM - COVID WITH FLUA+B, ROUTINE 2. Headache, unspecified headache type - ICD9: 784.0, ICD10: R51.9 Tylenol, ibuprofen prn - COVID WITH FLUA+B, ROUTINE 3. Exposure to COVID-19 virus - ICD9: V01.79, ICD10: Z20.822 Home isolation Testing ordered Comfort measures discussed - see patient instructions. When to seek higher level of care Notified in 24-48 hours with results, available on [employer] - COVID WITH FLUA+B, ROUTINE Diagnosis and treatment plan were discussed and questions were answered to the patient's satisfaction. Pt acknowledged understanding of concepts and follow up plan. Specific signs and symptoms that would indicate the need for higher level of care were discussed in detail warranting prompt ER evaluation. Hyun Johns APRN.[facility] Progress note 02-22-2021 Note Date & Type Note Facility 02-22-2021 Note HNO ID: [id number] Author: Hyun Johns APRN.BROADCAST OPERATIONS DIRECTOR Service: ? Author Type: Nurse Practitioner Type: Progress Notes Filed: 02/22/2021 9:27 AM Note Text: Subjective The history is provided by the patient. No english language arts teacher was used. JASMIN Escobar is a 35 year old female who presents today for CC of cough, congestion, runny nose for 24 hours Symptoms include: Fever (?100.4F): No or Chills: No Cough: No Shortness of breath: No or Difficulty breathing: No Fatigue: No Muscle aches: No Headache: Yes New loss of smell or taste: No Sore throat: Yes Nasal congestion: Yes or Rhinorrhea: Yes Nausea: No or Vomiting: No Diarrhea: No OTC meds/remedies that patient has tried: tylenol. High risk category assessment No high risk factors Exposures: Sick contacts? Yes Family or close contacts with confirmed/probable COVID-19 in last 14 days? No BP 106/66 Pulse 83 Temp 36.3 ?C (97.3 ?F) Resp 16 Wt 67.3 kg (148 lb 6.4 oz) SpO2 98% Social History Tobacco Use - Smoking status: Never Smoker - Smokeless tobacco: Never Used Substance Use Topics - Alcohol use: Not on file - Drug use: Not on file No past medical history on file. I have confirmed and edited as necessary, the [facility] Review of Systems Constitutional: Negative for chills and fever. HENT: Positive for congestion and sinus pain. Negative for ear pain and sore throat. Respiratory: Positive for cough. Negative for sputum production, shortness of breath and wheezing. Cardiovascular: Negative for chest pain. Musculoskeletal: Negative for myalgias. Neurological: Positive for headaches. Objective Physical Exam Vitals and nursing note reviewed. HENT: Head: Normocephalic and atraumatic. Right Ear: Tympanic membrane, ear canal and external ear normal. Left Ear: Tympanic membrane and ear canal normal. Mouth/Throat: Pharynx: Uvula midline. Cardiovascular: Rate and Rhythm: Normal rate and regular rhythm. Heart sounds: Normal heart sounds. Lymphadenopathy: Head: Right side of head: No submental, submandibular or tonsillar adenopathy. Left side of head: No submental, submandibular or tonsillar adenopathy. Cervical: No cervical adenopathy. Skin: General: Skin is warm and dry. Neurological: Mental Status: She is alert. Psychiatric: Mood and Affect: Affect normal. ASSESSMENT/PLAN: 1. Suspected COVID-19 virus infection - ICD9: V01.79, ICD10: Z20.822 (primary diagnosis) - 2019 CORONAVIRUS 2. Encounter for screening for COVID-19 - ICD9: V73.89, ICD10: Z11.52 Home isolation Testing ordered Comfort measures discussed When to seek higher level of care Notified in 24-48 hours with results, available on [employer] Diagnosis and treatment plan were discussed and questions were answered to the patient's satisfaction. Pt acknowledged understanding of concepts and follow up plan. Specific signs and symptoms that would indicate the need for higher level of care were discussed in detail warranting prompt ER evaluation. Hyun Johns APRN.[facility] Discharge summary note 01-13-2021 Note Date & Type Note Facility 01-13-2021 Note Attestation signed by Keyshawn Davenport DO at 01/13/2021 2:57 PM Attending Supervising Physician?s Attestation Statement The patient was seen and examined independently and relevant data reviewed by myself. A full chart review was performed. Care plan has been discussed with Resident Physician. I agree with the current plan of care including the workup, evaluation, management, and diagnosis. I have reviewed and agree with documentation below, unless stated otherwise in comments below. Right Lung Mass- initially felt to be pulmonary AVM per radiology at [facility]. CTA Chest at [facility] showed Lobular, low-density mass in the right lung. This does not demonstrate characteristics of a pulmonary arteriovenous malformation. Structure could represent a thrombosed AVM. However, there is no evidence of significant blood flow within the lesion on the current study. No evidence of lymphadenopathy. Patient is non smoker. No persistent cough, hemoptysis, weight loss, night sweats. Discussed with radiology and pulmonology will plan on close follow up as outpatient in pulmonary lung nodule clinic. Repeat CT chest in 3-6 months, consider biopsy if mass is enlarging. Syncope- Vasovagal. EKG wnl, ECHO unrevealing. Orthostatics negative. No further work up needed. Atypical chest pain- resolved with GI cocktail. Consider OP EGD should symptoms recur. Troponin Elevation- elevated at [facility], now undetectable. ECHO without WMA. No recurrence of chest pain. [facility] Discharge Summary and Transition Note Sally Escobar : 1985 ADMIT DATE: 01/12/2021 DISCHARGE DATE: 01/13/2021 PRIMARY CARE PHYSICIAN: CHARLENE BAILEY VISIT STATUS: Admission CODE STATUS: Full Code DISCHARGE DIAGNOSES: Principal Problem: Syncope and collapse Active Problems: Pulmonary arteriovenous malformation Resolved Problems: Elevated troponin Leukocytosis Chest pain in adult HOSPITAL COURSE: Patient is a 35-year-old female who presented as a transfer from [facility]. Patient had gone to hospital for syncope. Chest x-ray showed right sided mass and subsequent CT revealed possible pulmonary AVM with large feeder vessel. She was transferred to [facility] for additional evaluation and possible procedure for this lesion. Pulmonology was consulted. Additional imaging CTA chest and pulmonary angiogram suggested this was a nonpatent vessel that had undergone hemostasis and did not require intervention such as coiling. This was discussed between pulmonology, radiology, and IR. Patient will need periodic surveillance to be seen outpatient with additional imaging in 3 to 6 months in pulmonary nodule clinic. Syncope work-up including echocardiogram, telemetry, troponin were unremarkable and etiology was believed to be vasogenic. Patient was discharged home in stable condition. PROCEDURES: none CONSULTANTS: Pulmonology DISCHARGE MEDICATIONS: Significant Medication Changes: none Sally Escobar Home Medication Instructions AMISH:[id number] Printed on:01/13/21 1445 Medication Information citalopram (CELEXA) 20 MG tablet Take 20 mg by mouth daily desogestrel-ethinyl estradiol (ENSKYCE) 0.15-30 MG-MCG per tablet Take 1 tablet by mouth daily ibuprofen (ADVIL;MOTRIN) 200 MG tablet Take 400 mg by mouth every 6 hours as needed for Pain DIET: regular ACTIVITY: resume regular activity SIGNIFICANT DIAGNOSTIC STUDIES: CTA chest IMPRESSION: Lobular, low-density mass in the right lung as arrived. This does not demonstrate characteristics of a pulmonary arteriovenous malformation. Structure could represent a thrombosed AVM. However, there is no evidence of significant blood flow within the lesion on the current study. COMPLEXITY OF FOLLOW UP: [x] Moderate Complexity: follow up within 7-14 calendar days (34073) [] Severe Complexity: follow up within 7 calendar days (86960) FOLLOW UP TESTING, PENDING RESULTS OR REFERRALS AT TRANSITIONAL CARE VISIT: [] Yes [x] No DISPOSITION: home Follow up with PCP Notification (telephone encounter) to PCP initiated: [x] Yes [] No INSTRUCTIONS TO MA/SW: Please call patient on day after discharge (must document patient contacted within 2 business days of discharge). FOLLOW UP QUESTIONS FOR MA/SW: 1. Did you get medications filled and taking them as instructed from discharge? 2. Are you following your discharge instructions from your hospital stay? 3. Please confirm patient is scheduled for a follow up appointment within the above time frame. DISCHARGE TIME: > 30 minutes [facility] History of Present illness Narrative 01-13-2021 Edison Sanders DO - 01/13/2021 10:15 AM Jefe Maya DO - 01/13/2021 8:19 AM Zofia Navarrete RN - 01/12/2021 5:58 PM Aria Andersen RN - 01/12/2021 2:17 PM EDT Note Date & Type Note Facility 01-13-2021 History of Present illness Narrative Images from the original note were not included. [facility], Pulmonary Critical Care and Sleep Medicine Patient - Vindy Michelle Escobar, Age - 35 y.o. - 1985 Room Number - 1447/1447B Consulting - Keyshawn Davenport DO Primary Care Physician - No primary care provider on file. [facility] # - [id number] Date of Admission - 01/12/2021 3:08 AM Hospital Day - 1 Subjective/Events Past 24 hours/ROS No overnight events and no new complaints. VSS. Patient would like to go home. Now s/p CTA to further classify AVM and assess if pulm angio needed +- embolization. Denies CP, SOB, hemoptysis, cough, syncope/dizziness. All other systems reviewed and negative. Objective Vitals Vitals: BP 115/76 Pulse 68 Temp 97.2 F (36.2 C) (Temporal) Resp 18 SpO2 100% Pulse Ox: SpO2 Av.8 % Min: 92 % Max: 100 % Supplemental O2: I/O 24HR INTAKE/OUTPUT: Intake/Output Summary (Last 24 hours) at 01/13/2021 1300 Last data filed at 01/12/2021 1753 Gross per 24 hour Intake 1698 ml Output Net 1698 ml No data found. Exam General Appearance Awake, alert, oriented, in no acute distress. HEENT - normocephalic, atraumatic, sclarea is anicteric, conjunctiva is pink, nasal mucosa is normal, no congestion, external ears are intact. Neck - Supple, trachea midline, full range of motion. Lymph nodes- no cervical, clavicular, or posterior auricular lymphadenopathy Lungs Normal effort (mild/moderate/severe tachypnea) no wheezes, rales or rhonchi, aeration good Poor air entry bilaterally, no obvious wheezing or crackles, diminished breath sounds at the bases. Cardiovascular - Heart sounds are normal. Regular rate and rhythm, without murmurs, rubs or gallops Abdomen - Soft, nontender, nondistended, no masses or organomegaly Neurologic - Awake, alert, follows commands. Cranial nerves II-XII are intact, There are no focal motor deficits grossly Skin - No bruising or bleeding, normal turgor, no rashes or lesions Extremities - No clubbing, cyanosis, edema Peripheral pulses- present bilaterally and symmetric Psychiatric: appropriate, oriented to person, place and time/date Meds sodium chloride flush 5-40 mL Intravenous 2 times per day sodium chloride sodium chloride flush, sodium chloride, ondansetron OR ondansetron, polyethylene glycol, acetaminophen OR acetaminophen, perflutren lipid microspheres, sodium chloride flush, melatonin Labs CBC Recent Labs 01/13/21 0500 WBC 4.6 HGB 12.1 HCT 37.2 MCV 84.1 PLT 247 BMP: Recent Labs 01/12/21 1250 01/12/21 1250 01/13/21 0500 NA 137 < > 138 K 3.9 < > 4.3 CL 106 < > 108* CO2 26 < > 23 BUN 7 < > 9 CREATININE 0.78 < > 0.75 GLUCOSE 85 < > 86 MG 2.0 2.0 -- -- < > = values in this interval not displayed. ABG: No results for input(s): PH, PCO2, PO2, HCO3, O2SAT in the last 72 hours. No results found for: IFIO2, MODE, SETTIDVOL, SETPEEP LIVER PROFILE No results for input(s): AST, ALT, LIPASE, BILIDIR, BILITOT, ALKPHOS in the last 72 hours. Invalid input(s): AMYLASE, LB INR No results found for: INR, PROTIME PTT No results found for: APTT Cultures N/A Radiology CTA Chest: read pending Reviewed (See actual reports for details) Active Hospital Problem List Active Hospital Problems Diagnosis Date Noted Syncope and collapse [R55] 01/12/2021 Pulmonary arteriovenous malformation [Q25.72] 01/12/2021 Assessment and Plan # Right Hilar Mass # Possible Pulmonary AVM - No stigmata of right to left shunting, no platypnea or orthodeoxia , no liver disease (transaminases normal) - 2.2 cm x 3.4 cm AVM right middle lobe - ECHO, without bubble study, reviewed, no pathologic findings - CTA completed, awaiting read for possible pulmonary angiography +- embolization if criteria met/amenable - If no need for angio, outpatient pulm f/u for interval surveillance of pulmonary AVM #Never smoker #Syncope -resolved # Atypical chest pain - resolved # GI upset - resolved DVT prophylaxis: [] Lovenox [] Heparin [] SCDs [x] Encourage ambulation [] Already on Anticoagulation Advance Directive: Full Code Discharge planning: TBD Case discussed with nurse and patient/family. Questions and concerns addressed. Associated attestation - Cesar Herrera MD - 01/13/2021 2:55 PM EDT Attending Supervising Physician s Attestation Statement The patient met the criteria for indirect supervision. I discussed the findings and plans with the resident physician and agree as documented in his note . Assessment: 1 thrombosed pulmonary AVM? Plan: 1 IR not planning any intervention 2 needs outpatient follow-up. Images from the original note were not included. [facility] Progress Note Sally Escobar : 1985(35 y.o.) Date: 01/13/21 Subjective: HPI Patient upset she is still here and her work up is taking longer than she had expected. Explained pulmonology -> vascular consult and then IR becoming involved. Went over plan of CTA and pulmonary angiogram today. After imaging study IR would need to interpret and make decision on coil etc. She would like to go home as her 3 kids start school tomorrow. She understands that this could be done outpatient but may take significantly more time. Transportation is backed up. So we took her by wheelchair to radiology. Scheduled Meds: sodium chloride flush 5-40 mL Intravenous 2 times per day Continuous Infusions: sodium chloride lactated ringers 100 mL/hr at 01/13/21 0514 PRN Meds:sodium chloride flush, sodium chloride, ondansetron OR ondansetron, polyethylene glycol, acetaminophen OR acetaminophen, perflutren lipid microspheres, sodium chloride flush, melatonin Review of Systems Constitutional: Negative for chills, fatigue and fever. HENT: Negative for facial swelling, hearing loss, nosebleeds and tinnitus. Eyes: Negative for photophobia and visual disturbance. Respiratory: Negative for cough, chest tightness and shortness of breath. Cardiovascular: Negative for chest pain, palpitations and leg swelling. Gastrointestinal: Negative for abdominal distention, abdominal pain, constipation, diarrhea and nausea. Endocrine: Negative for polydipsia and polyuria. Genitourinary: Negative for difficulty urinating and hematuria. Musculoskeletal: Negative for arthralgias and back pain. Skin: Negative for color change and rash. Neurological: Negative for dizziness, seizures, syncope, light-headedness and headaches. Hematological: Negative for adenopathy. Does not bruise/bleed easily. Psychiatric/Behavioral: Negative for agitation, behavioral problems and confusion. Interval Pertinent History: Social History Tobacco Use Smoking status: Not on file Substance Use Topics Alcohol use: Not on file Objective: Patient Vitals for the past 24 hrs: BP Temp Temp src Pulse Resp SpO2 01/13/21 0759 107/69 97 F (36.1 C) Temporal 69 16 92 % 01/13/21 0344 109/70 96.6 F (35.9 C) Temporal 72 18 99 % 01/12/21 2355 114/74 97.4 F (36.3 C) Temporal 74 20 96 % 01/12/21 2036 116/84 97.7 F (36.5 C) Temporal 73 20 96 % 01/12/21 1650 101/72 98.2 F (36.8 C) Temporal 68 16 98 % 01/12/21 0847 96/74 85 97 % Average, Min, and Max for last 24 hours Vitals: TEMPERATURE: Temp Av.4 F (36.3 C) Min: 96.6 F (35.9 C) Max: 98.2 F (36.8 C) RESPIRATIONS RANGE: Resp Av Min: 16 Max: 20 PULSE RANGE: Pulse Av.5 Min: 68 Max: 85 BLOOD PRESSURE RANGE: Systolic (24hrs), Av , Min:96 , Max:116 ; Diastolic (24hrs), Av, Min:69, Max:84 PULSE OXIMETRY RANGE: SpO2 Av.3 % Min: 92 % Max: 99 % I/O last 3 completed shifts: In: 1698 [P.O.:500; I.V.:1198] Out: - Physical Exam Vitals reviewed. Constitutional: General: She is not in acute distress. Appearance: Normal appearance. She is well-developed. HENT: Right Ear: External ear normal. Left Ear: External ear normal. Nose: Nose normal. Mouth/Throat: Mouth: Mucous membranes are moist. Pharynx: Oropharynx is clear. Cardiovascular: Rate and Rhythm: Normal rate and regular rhythm. Heart sounds: No murmur heard. No friction rub. No gallop. Pulmonary: Effort: Pulmonary effort is normal. No respiratory distress. Breath sounds: Normal breath sounds. No wheezing. Abdominal: General: Bowel sounds are normal. Palpations: Abdomen is soft. There is no mass. Musculoskeletal: Cervical back: Neck supple. No rigidity. Right lower leg: No edema. Left lower leg: No edema. Neurological: Mental Status: She is alert and oriented to person, place, and time. Psychiatric: Mood and Affect: Mood and affect normal. Lab Results Component Value Date WBC 4.6 01/13/2021 HGB 12.1 01/13/2021 HCT 37.2 01/13/2021 MCV 84.1 01/13/2021 PLT 247 01/13/2021 Lab Results Component Value Date NA 138 01/13/2021 K 4.3 01/13/2021 CL 108 01/13/2021 CO2 23 01/13/2021 BUN 9 01/13/2021 CREATININE 0.75 01/13/2021 GLUCOSE 86 01/13/2021 CALCIUM 8.4 01/13/2021 No results found for: LABA1C Additional results of the last 24 hours have been reviewed. Assessment and Plan: Principal Problem: Syncope and collapse Active Problems: Pulmonary arteriovenous malformation Resolved Problems: Elevated troponin Leukocytosis Chest pain in adult Syncope -Etiology likely vasovagal, less concern for cardiogenic causes, PE -Continue telemetry while admitted -Echo w/o clot, valvular damage or reduced EF -Orthostatics negative x2, status post fluids Pulmonary AVM malformation -CT from [place] ED read as a middle lobe ovoid mass measuring 3.6 x 2.2 cm -Pulmonology following appreciate recs -pulmonary angiogram and CTA pending -?IR possible coil today vs tomorrow vs being done outpatient pending imaging studies Chest pain -troponin undedtectable, EKG w/o ST changes -Slight leukocytosis 14.5, trend- likely reactive from pain earlier -resolved -As needed ondansetron URI -COVID negative Hypokalemia -Potassium 3.3, trend -Replenish -check mag control -Consider test -Patient states has been on control for 3 months however chart says 1 day from [place] DVTProphylaxis: lovenox I spent over 51% of total time providing counseling or incoordination of care: > 35 minutes discussed with nurse, patient and family updated, I personally examined the patient and I personally reviewed chart, data, labs radiology reports 6AM-6PM please page: 6PM-6AM please page: [facility] [place] Internal Medicine Associated attestation - Keyshawn Davenport DO - 01/13/2021 12:05 PM EDT Attending Supervising Physician s Attestation Statement The patient was seen and examined independently and relevant data reviewed by myself. A full chart review was performed. Care plan has been discussed with Resident Physician. I agree with the current plan of care including the workup, evaluation, management, and diagnosis. I have reviewed and agree with documentation below, unless stated otherwise in comments below. Pulmonary AVM- CTA Chest completed. Awaiting radiology review to see if patient needs angiogram +/- embolization. If not needed will likely d/c home with OP pulmonology follow up to ensure she has continued surveillance of pulmonary AVM. Syncope- Vasovagal. EKG wnl, ECHO unrevealing. Orthostatics negative. No further work up needed. Atypical chest pain- resolved with GI cocktail. Consider OP EGD should symptoms recur. Troponin Elevation- elevated at [facility], now undetectable. ECHO without WMA. No recurrence of chest pain. Cardiology consult if patient has recurrence of chest pain. Patient has been resting comfortably in bed all day, she was given tylenol a while ago for a slight head ache. She was hopeful to be able to go home today, informed her of some planned testing tomorrow of chest CTA along with angiogram. Zofia Souza RN Images from the original note were not included. IP was requested to obtain negative rapid COVID-19 test from transferring ED [facility]. STEP MEDICATION RECONCILIATION Date: 01/12/21 Room:[address] [place] [address] Patient Name: Sally Escobar Allergies: Patient has no known allergies. Age: 35 y.o. Sex: female Note: New information has been obtained regarding the patient s medications. The medication reconciliation has been updated to reflect this. Please consider making these changes/additions if appropriate: Recommendations: 1. Home medications to restart if there is not a current contraindication: a. Citalopram 20 mg PO daily 2. Pursue the following to decrease adherence barriers: a. Patient would like medications filled via [facility] to [facility] at discharge Please page/call with questions. Date: 01/12/21 Time: 7:45 AM Ruddy Preston PharmD 01/12/2021 7:46 AM documented in this encounter [facility] Work Phone: Evaluation note Note Date & Type Note Facility documented in this encounter [facility] Work Phone: Advance Directives No Advanced Directives Records FoundLatest Code Status on File Code Status Date Activated Date Inactivated Comments Full Code 01/12/2021 4:36 AM Healthcare Agents on File Name Relationship Healthcare Agent Relationshi p Communication Luan Escobar Spouse Secondary Decision Maker Summary Purpose Family History No Family History Records FoundNo Family History Records FoundNo Family History Records Found Additional Source Comments Reason for Visit (unrecogniz ed section and content) Scheduled Active and Recently Administ ered Medications (unrecognized section and content) Continuous Medication Order 01/11/2021 01/12/2021 01/13/2021 lactated ringers infusion (CANCELED) Intravenous, at 100 mL/hr, CONTINUOUS, Starting on Mon01/12/21 at 0500, 1L Once 0537 (New Bag - Provider: Lorenzo Lake RN)1500 (New Bag - Provider: Zofia Souza RN) 0514 (New Bag - Provider: Amie Glover RN) PRN Medication Order 01/11/2021 01/12/2021 01/13/2021 0.9 % sodium chloride infusion 25 mL, Intravenous, at 100 mL/hr, PRN, If patient receiving piggyback infusions without ordered maintenance IV fluids or with frequent/long duration piggyback infusions, Starting on Mon01/12/21 at 0436, Administer at the same rate as the piggyback being infused. acetaminophen (TYLENOL) suppository 650 mg(Linked Group 1) 650 mg, Rectal, EVERY 6 HOURS PRN, Pain Mild (1-3), Fever, For temp greater than 100.4 F (38 C), Starting on Mon01/12/21 at 0436, Administer if oral route cannot be used. 1500 (See Alternative - Provider: Zofia Souza RN) acetaminophen (TYLENOL) tablet 650 mg(Linked Group 1) 650 mg, Oral, EVERY 6 HOURS PRN, Pain Mild (1-3), Fever, For temp greater than 100.4 F (38 C), Starting on Mon01/12/21 at 0436, Maximum dose of acetaminophen is 4000 mg from all sources in 24 hours. 1500 (Given - Provider: Zofia Souza RN - Comment: headache) melatonin tablet 5 mg 5 mg, Oral, NIGHTLY PRN, sleep, Starting on Mon01/12/21 at 2100 ondansetron (ZOFRAN) injection 4 mg(Linked Group 2) 4 mg, Intravenous, EVERY 6 HOURS PRN, Nausea, Vomiting, Starting on Mon01/12/21 at 0436, Administer if oral route cannot be used. ondansetron (ZOFRAN-ODT) disintegrating tablet 4 mg(Linked Group 2) 4 mg, Oral, EVERY 8 HOURS PRN, Nausea, Vomiting, Starting on Mon01/12/21 at 0436 perflutren lipid microspheres (DEFINITY) injection 1.65 mg 1.65 mg (1.5 mL), Intravenous, IMG ONCE PRN, Other, Suboptimal Echo Image, Starting on Mon01/12/21 at 0436, For 72 hours, Administer up to 1.65 mg via slow IVP for suboptimal echocardiogram enhancement. May administer as concentrated dose or diluted in 8.5 mL of 0.9% sodium chloride for a total volume of 10 mL. May administer as divided doses to reach optimal image enhancement. polyethylene glycol (GLYCOLAX) packet 17 g 17 g, Oral, DAILY PRN, Constipation, Starting on Mon01/12/21 at 0436, First line therapy for constipation sodium chloride flush 0.9 % injection 5-40 mL 5-40 mL, Intravenous, PRN, Line Care, After every IV line use, Starting on Mon01/12/21 at 0436, For Line Patency: Peripheral IV = 5 mL; Midline or Central Line = 10 mL/lumen. If following IV push medication, administer flush at same rate as the IV push. Flush volume is determined by type of infusion therapy being given. For non-viscous solutions use: Peripheral IV = 5 mL Midline or Central Line = 10 mL/lumen For viscous solutions (i.e. blood components, parenteral nutrition, contrast media, or after obtaining blood sample) use: Peripheral IV = 10 mL Midline or Central Line = 20 mL/lumen sodium chloride flush 0.9 % injection 5-40 mL 5-40 mL, Intravenous, PRN, Line Care, Per Home Theater Specialist Request, Starting on Mon01/12/21 at 0436, For 72 hours, May use order for Line Care after every IV line use and Agitated Saline Bubble Study. Administration for Bubble Study per tavern keeper request for only. Remove 1 mL 0.9% sodium chloride from 10 mL syringe for creating agitated saline. If following IV push medication, administer flush at same rate as the IV push. Flush volume is determined by type of infusion therapy being given. , For non-viscous solutions use: Peripheral IV = 5 mL Midline or Central Line = 10 mL/lumen For viscous solutions (i.e. blood components, parenteral nutrition, contrast media, or after obtaining blood sample) use: Peripheral IV = 10 mL Midline or Central Line = 20 mL/lumen Linked Groups Order Group 1: acetaminophen (TYLENOL) tablet 650 mgJump to med 650 mg, Oral, EVERY 6 HOURS PRN, Pain Mild (1-3), Fever, For temp greater than 100.4 F (38 C), Starting on Mon01/12/21 at 0436
Maximum dose of acetaminophen is 4000 mg from all sources in 24 hours.
Or acetaminophen (TYLENOL) suppository 650 mgJump to med 650 mg, Rectal, EVERY 6 HOURS PRN, Pain Mild (1-3), Fever, For temp greater than 100.4 F (38 C), Starting on Mon01/12/21 at 0436
Administer if oral route cannot be used.
Group 2: ondansetron (ZOFRAN-ODT) disintegrating tablet 4 mgJump to med 4 mg, Oral, EVERY 8 HOURS PRN, Nausea, Vomiting, Starting on Mon01/12/21 at 0436 Or ondansetron (ZOFRAN) injection 4 mgJump to med 4 mg, Intravenous, EVERY 6 HOURS PRN, Nausea, Vomiting, Starting on Mon01/12/21 at 0436
Administer if oral route cannot be used.
INFORMATION SOURCE (unrecogn ized section and content) DATE CREATED AUTHOR AUTHOR'S ORGANIZ ATION 07/03/2021 [facility] DATE CREATED AUTHOR AUTHOR'S ORGANIZ ATION 07/15/2021 [facility] FOR RECORDS PERTAINING TO PATIENTS WHO ARE OR HAVE BEEN ENROLLED IN A CHEMICAL DEPENDENCY/SUBSTANCEABUSE PROGRAM, SOME INFORMATION MAY BE OMITTED. This clinical summary was aggregated from multiple sources. Caution should be exercised in using it in the provision of clinical care. This summary normalizes information from multiple sources, and as a consequence, information in this document may materially change the coding, format and clinical context of patient data. In addition, data may be omitted in some cases. CLINICAL DECISIONS SHOULD BE BASED ON THE PRIMARY CLINICAL RECORDS. [employer] [facility]. provides no warranty or guarantee of the accuracy or completeness of information in this document.
== END | disposition home or self-care (01) ==
PROVIDERS: PCP Family Medicine; Referring Provider Internal Medicine Gastroenterology; Visit Provider Internal Medicine Gastroenterology
DX: R10.13 Epigastric pain (principal); R55 Syncope and collapse
CPT/HCPCS: 81050; 84110

== ENCOUNTER 2024-01-24 11:19 | Emergency (ER) | payer OTHER, SELFPAY ==
[2024-01-24 11:20] VITALS: BP 124/88; PULSE 78; RESP 16; TEMP 36.2; O2SAT 99; BMI 25.9
--- NOTE | 2024-01-24 11:37 | EDS_ITS ---
HPI HPI - Fall History of Present Illness Chief Complaint: Fall PFSH PFSH Medical History (Updated 01/24/24 @ 14:[address] Jarad Phelan, DO) Syncope GERD (gastroesophageal reflux disease) Pulmonary arteriovenous malformation Depression Home Medications ?Medication ?Instructions ?Recorded ?Last Taken ?Type citalopram 20 mg tablet 20 mg PO DAILY depression 10/17/18 10/16/18 History lorazepam 0.5 mg tablet (Ativan) 0.5 mg PO DAILY PRN 02/14/22 Unknown History lidocaine HCl 2 % mucosal solution 10 ml mucous membrane TID PRN pain 03/24/22 Unknown Rx (Lidocaine Viscous) #100 mL hyoscyamine sulfate 0.125 mg 0.125 mg PO BID-QID PRN dyspepsia 02/09/23 Unknown Rx sublingual tablet #7 tabs dicyclomine 20 mg tablet 20 mg PO TID PRN abdominal pain 30 10/20/23 Unknown Rx days #90 tabs ondansetron 4 mg disintegrating 4 mg PO Q8H PRN PRN Nausea #10 tabs 01/24/24 Unknown Rx tablet oxycodone 5 mg tablet 5 mg PO Q6H PRN pain 3 days #12 01/24/24 Unknown Rx tabs Allergy/AdvReac Type Severity Reaction Status Date / Time No Known Allergies Allergy Verified 01/24/24 11:21 Family History Grandmother Diabetes Surgical History delivery delivered Social History (Updated 03/07/23 @ 09:59 by Rosa Rao RN) number of children: 2 current occupational status: employed 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 Smoking Status: Never smoker alcohol intake: current alcohol intake frequency: a few times a week substance use type: does not use caffeine: Yes Type: coffee Number of servings: 2 seatbelt use: always do you feel safe at home: Yes additional social history: Seperated EXAM Physical Exam Const Vital Signs: 01/24/24 11:20 Temperature 97.2 F L Temperature Source Temporal Pulse Rate 78 Respiratory Rate 16 Blood Pressure 124/88 H Blood Pressure Mean 100 Pulse Ox 99 Oxygen Delivery Method Room Air MDM MDM MDM Narrative Medical decision making narrative: HISTORY OF PRESENT ILLNESS: 38-year-old female presents after a fall. Notes she fell in her office. Notes she attempted to sit down in her chair when the chair slid out from underneath her causing her to fall on her tailbone. She denies any back pain, head trauma, loss of consciousness. Denies bowel or bladder incontinence, urinary retention, saddle anesthesia or lack of movement or sensation in her legs. REVIEW OF SYSTEMS: Pertinent positives: Tailbone pain Pertinent negatives: As per HPI PHYSICAL EXAM: Nursing triage notes reviewed, Vital signs reviewed Primary Survey Airway: Intact Breathing: Bilateral breath sounds Circulation: Palpable bilateral femorals, Palpable bilateral radial, Palpable bilateral DP and Palpable bilateral PT Disability / Spine precautions GCS Score: Eye Openin Verbal Response: 5 Motor Response: 6 Secondary Survey Constitutional: Please see MDM Lungs: Clear to auscultation, No asymmetric rise and No crepitus, no flail chest Cardiac: Regular rate and rhythm and No murmurs Back: No midline bony tenderness to thoracic/lumbar. TTP lower sacral spine. Neuro: At baseline, intact strength and sensation in bilateral upper and lower extremities. 2+ patellar reflexes bilaterally. Extremities: NO gross Deformities Psych: Normal affect Nursing triage notes reviewed, Vital signs reviewed MEDICAL DECISION MAKING: Chief Complaint: Fall, tailbone pain External records reviewed: Imaging reviewed: No recent advanced imaging of the axial skeleton, brain or extremities. Factors affecting care: none Social determinants of health: none History obtained from others: none Consults: Orthopedic spine surgery (Dr. Love) [facility] Narrative: The patient was initially hemodynamically stable, afebrile and nontoxic- appearing. Primary secondary trauma surveys concerning for the following differential diagnosis: I considered the following differential diagnosis: Coccygeal fracture, dislocation, lumbar fracture dislocation. I obtained a CT scan rule out bony abnormality. ALL IMAGES (IF OBTAINED) HAVE BEEN PERSONALLY REVIEWED AND INTERPRETED BY MYSELF. CT scan of the lumbar spine showed evidence of a coccygeal dislocation. Reached out to orthopedic spine for recommendations. Discussed with Dr. Love. Recommended no immediate surgical intervention but noted pain control and outpatient follow-up if symptoms persisted. Will likely discharge the patient with oral narcotic pain medicine, instructions to use a wedge pillow or similar device to provide pressure relief in the follow-up as an outpatient. The patient and/or family, caregivers express understanding. The patient and/or family, caregivers agrees with the plan. Shared decision making: I will have a discussion with the patient and or visitors regarding risk/benefits of further testing or admission. They will be made aware of of the risk/benefits inherent in this decision they will be given the opportunity to voice understanding. Total critical care time today provided was at least 0 minutes. This excludes separately billable procedures. Critical care time (if documented) is secondary to the patient having high probability of clinically significant/life threatening deterioration in the patient's condition which required my urgent intervention. Impression: 1. Fall 2. Tailbone pain 3. Coccygeal subluxation Dispo: Discharge home This note was generated with [employer] dictation software. It may contain incorrect words, spelling, and punctuation that were not noted in review of the chart prior to signing. Radiography Diagnostic Testing: Clinical Impression(s) from Imaging Studies Lumbar Spine CT 01/24/24 11:58 IMPRESSION: Normal unenhanced CT examination of the lumbar spine. Electronically Signed: Elder Hill MD at 12:27 EDT , ADDENDUM: 01/24/24 1344 IMPRESSION: There is an acute angle in the distal coccygeal segments. There is no demonstrated fracture or significant soft tissue swelling. This could represent a subluxation, please correlate with physical exam. Electronically Signed: Elder Hill MD at 13:37 EDT , ADDENDUM: 01/24/24 1348 IMPRESSION: There is an acute angle in the distal coccygeal segments. There is no demonstrated fracture or significant soft tissue swelling. This could represent a subluxation, please correlate with physical exam. Electronically Signed: Elder Hill MD at 13:37 EDT , Discharge Plan Triage Chief Complaint: Fall ED Provider: Jarad Phelan Dx/Rx/DC Orders Clinical Impression: Closed dislocation of coccyx Instructions: Tailbone (Coccyx) Fracture Prescriptions: New oxycodone 5 mg tablet 5 mg PO Q6H PRN (Reason: pain) 3 Days Qty: 12 0RF ondansetron 4 mg tablet,disintegrating 4 mg PO Q8H PRN PRN (Reason: Nausea) Qty: 10 0RF No Action lorazepam [Ativan] 0.5 mg tablet 0.5 mg PO DAILY PRN hyoscyamine sulfate 0.125 mg tablet, sublingual 0.125 mg PO BID-QID PRN (Reason: dyspepsia) Qty: 7 3RF dicyclomine 20 mg tablet 20 mg PO TID PRN (Reason: abdominal pain) 30 Days Qty: 90 2RF citalopram 20 MG tablet 20 mg PO DAILY lidocaine HCl [Lidocaine Viscous] 2 % solution 10 ml mucous membrane TID PRN (Reason: pain) Qty: 100 0RF Stand Alone Forms: ED Work / School Excuse Primary Care Provider: Charlene Bailey Referrals: Derick Aguero DO [Med Staff - Active Staff] - Activity Restrictions/Additional Instructions: Thank you for trusting us with your care today! Your CT scan showed evidence of a coccygeal dislocation Please take Tylenol (2 pills, 650 mg), ibuprofen (2 pills, 400 mg) every 6 hours as needed for pain and fever control. Please take oxycodone to the above pain regiment does not control your pain. Please use a wedge pillow or other similar device to decrease pressure on your coccyx. Please return to the emergency department if your symptoms change or worsen. Please follow with your orthopedic spine surgery for further outpatient evaluation and management. Print Language: Portuguese Disposition Disposition: Home, Self Care Discharge Date/Time: 01/24/24 14:41
--- NOTE | 2024-01-24 11:58 | CT_ITS ---
STUDY: CT LUMBAR SPINE WITHOUT CONTRAST REASON FOR EXAM: Female, 38 years old. back pain RADIATION DOSAGE (If Supplied By Facility): CTDIvol = ( 14.51 ) mGy, DLP = ( 541.22 ) mGycm TECHNIQUE: The patient was scanned in a multi detector CT scanner. High resolution transaxial imaging was performed. Images were obtained from mid T12 to through the coccyx. Sagittal and coronal images were reconstructed. Individualized dose optimization techniques were used for this CT. COMPARISON: None FINDINGS: Normal lumbar lordosis. There is no substantial scoliosis. Normal alignment of the lumbar vertebral bodies. Normal vertebrae of the lumbar spine. There is no demonstrated compression deformity or fracture of the visualized lumbar vertebrae. L1-2: Normal endplates. Normal disc height and morphology. Normal bilateral facet joints. Normal central canal and bilateral lateral recesses. Normal bilateral intervertebral neural foramina. L2-3: Normal endplates. Normal disc height and morphology. Normal bilateral facet joints. Normal central canal and bilateral lateral recesses. Normal bilateral intervertebral neural foramina. L3-4: Normal endplates. Normal disc height and morphology. Normal bilateral facet joints. Normal central canal and bilateral lateral recesses. Normal bilateral intervertebral neural foramina. L4-5: Normal endplates. Normal disc height and morphology. Normal bilateral facet joints. Normal central canal and bilateral lateral recesses. Normal bilateral intervertebral neural foramina. L5-S1: Normal endplates. Normal disc height and morphology. Normal bilateral facet joints. Normal central canal and bilateral lateral recesses. Normal bilateral intervertebral neural foramina. Normal visualized paraspinous soft tissue structures. CT/Spine Lumbar without Contrast IMPRESSION: Normal unenhanced CT examination of the lumbar spine. Electronically Signed: Elder Hill MD at 12:27 EDT ,
[2024-01-24] MEDS: Acetaminophen 500 MG Tablet PO (12:10)
[2024-01-24] MEDS: Ibuprofen 200 MG Tablet 400 MG PO (12:12)
== END 2024-01-24 14:41 | disposition home or self-care (01) ==
PROVIDERS: Emergency Provider Emergency Medicine; PCP Family Medicine; Visit Provider Emergency Medicine
DX: S33.2XXA Dislocation of sacroiliac and sacrococcygeal joint, initial encounter (principal); W07.XXXA Fall from chair, initial encounter; Y92.59 Other trade areas as the place of occurrence of the external cause; Y99.0 Civilian activity done for income or pay; K21.9 Gastro-esophageal reflux disease without esophagitis; F32.A Depression, unspecified; Z79.899 Other long term (current) drug therapy
CPT/HCPCS: 72131; 99282

== ENCOUNTER → 2024-04-03 | Outpatient (CLI) | payer OTHER, SELFPAY | END | disposition home or self-care (01) | PROVIDERS: PCP Family Medicine; Referring Provider Nurse Practitioner Women's Health; Visit Provider Nurse Practitioner Women's Health | DX: Z12.31 Encounter for screening mammogram for malignant neoplasm of breast (principal) | CPT/HCPCS: 77063; 77067 ==